=== PATIENT | male | born 1955 | race Caucasian/White ===

== ENCOUNTER 2020-09-28 12:48 | Inpatient (IN) | payer MEDICARE, MEDICAID ==
[2020-09-28 13:45] LABS: HEMATOCRIT 33.8 % (37.9-51.0); MEAN CORPUSCULAR HGB CONC 32.5 g/dL (32.0-36.0); MEAN CORPUSCULAR VOLUME 99 fl (80-97); PLATELET COUNT 285 10^3/uL (150-450); RED BLOOD COUNT 3.42 10^6/uL (4.35-5.55); RED CELL DISTRIBUTION WIDTH 14.8 % (11.5-14.0); WHITE BLOOD COUNT 13.3 10^3/uL (4.0-10.5)
[2020-09-28 13:51] LABS: ALBUMIN 4.1 g/dL (3.5-5.0); ALKALINE PHOSPHATASE 131 U/L (38-126); ANION GAP 10 (5-19); ASPARTATE AMINO TRANSFERASE 42 U/L (17-59); BILIRUBIN,DIRECT 0.4 mg/dL (0.0-0.4); BILIRUBIN,TOTAL 0.7 mg/dL (0.2-1.3); BLOOD UREA NITROGEN 30 mg/dL (7-20); CALCIUM 9.6 mg/dL (8.4-10.2); CARBON DIOXIDE 24 mmol/L (22-30); CHLORIDE 109 mmol/L (98-107); CREATINE KINASE 247 U/L (55-170); GLUCOSE 99 mg/dL (75-110); POTASSIUM 4.2 mmol/L (3.6-5.0); TOTAL PROTEIN 6.7 g/dL (6.3-8.2)
[2020-09-28 14:01] LABS: CREATINE KINASE MB 5.99 ng/mL (<4.55)
[2020-09-28 14:04] LABS: ABSOLUTE LYMPHOCYTES# (MANUAL) 0.4 10^3/uL (0.5-4.7); ABSOLUTE MONOCYTES # (MANUAL) 1.1 10^3/uL (0.1-1.4); BAND NEUTROPHILS % (MANUAL) 1 % (3-5); BASOPHILS % (MANUAL) 0 % (0-2); EOSINOPHILS % (MANUAL) 7 % (0-6); LYMPHOCYTES % (MANUAL) 2 % (13-45); MONOCYTES % (MANUAL) 8 % (3-13); SEGMENTED NEUTROPHILS % (MAN) 81 % (42-78); TOTAL CELLS COUNTED 100
[2020-09-28 14:05] LABS: PLATELET COMMENT ADEQUATE; RBC MORPHOLOGY COMMENT NORMO-CYTIC/CHROMIC; TROPONIN I 0.069 ng/mL
--- NOTE | 2020-09-28 14:21 | RADIOLOGY REPORT (SQ) ---
EXAM DESCRIPTION: CHEST SINGLE VIEW IMAGES COMPLETED DATE/TIME: 09/28/2020 2:10 pm REASON FOR STUDY: shortness of breath COMPARISON: None. EXAM PARAMETERS: NUMBER OF VIEWS: One view. TECHNIQUE: Single frontal radiographic view of the chest acquired. RADIATION DOSE: NA LIMITATIONS: None. FINDINGS: LUNGS AND PLEURA: Small pleural effusions, right greater than left. No infiltrate. MEDIASTINUM AND HILAR STRUCTURES: No masses. Contour normal. HEART AND VASCULAR STRUCTURES: Heart size upper limits normal. Normal vasculature. BONES: No acute findings. HARDWARE: None in the chest. OTHER: No other significant finding. IMPRESSION: Small pleural effusions. TECHNICAL DOCUMENTATION: JOB ID: [id number] 2010 [employer]- All Rights Reserved Reading location - IP/workstation name: [email or web address]
--- NOTE | 2020-09-28 14:22 | EKG REPORT ---
SEVERITY:- ABNORMAL ECG - SINUS TACHYCARDIA CONSIDER LEFT VENTRICULAR HYPERTROPHY BORDERLINE PROLONGED QT INTERVAL : Confirmed by: Marlene Mckenna MD 28-Sep-2020 14:21:12
--- NOTE | 2020-09-28 15:11 | ER Document Report ---
ED General - General Chief Complaint: Shortness Of Breath Stated Complaint: SHORTNESS OF BREATH Time Seen by Provider: 09/28/20 13:02 Mode of Arrival: Medic Information source: Patient - HPI Notes: [facility] with [facility]ness of breath. He states he is not on oxygen at the [facility] just breathing treatments. He states he still smokes. Patient states he has had several days of increasing shortness of breath. He does have a history of congestive heart failure and COPD. No fever sweats or chills. No known Covid exposure. He denies any pain. He states now that oxygen has been placed on him he does feel better. - Related Data Allergies/Adverse Reactions: Penicillins Allergy (Verified 09/28/20 13:13) Past Medical History - General Information source: Patient - Social History Smoking Status: Current Every Day Smoker Frequency of alcohol use: None Drug Abuse: None Family History: Reviewed & Not Pertinent Patient has homicidal ideation: No - Past Medical History Cardiac Medical History: Reports: Hx Congestive Heart Failure Pulmonary Medical History: Reports: Hx COPD Review of Systems - Review of Systems Constitutional: denies: Chills, Fever Cardiovascular: denies: Chest pain, Palpitations Respiratory: Cough, Short of breath -: Yes All other systems reviewed and negative Physical Exam - Vital signs Vitals: Temp 97.9 F 09/28/20 12:49 Interpretation: Tachycardic - General General appearance: Appears well, Alert - HEENT Head: Normocephalic, Atraumatic Eyes: Normal Pupils: PERRL - Respiratory Respiratory status: Respiratory distress - mild Chest status: Nontender Breath sounds: Decreased air movement Chest palpation: Normal - Cardiovascular Rhythm: Tachycardia Heart sounds: Normal auscultation Murmur: No - Abdominal Inspection: Normal Distension: No distension Bowel sounds: Normal Tenderness: Nontender Organomegaly: No organomegaly - Back Back: Normal, Nontender - Extremities General upper extremity: Normal inspection, Nontender, Normal color, Normal ROM, Normal temperature General lower extremity: Normal inspection, Nontender, Edema - 2+ bilaterally, Normal color, Normal ROM, Normal temperature, Normal weight bearing. No: Juli's sign - Neurological Neuro grossly intact: Yes Cognition: Normal Orientation: AAOx4 [place] Coma Scale Eye Opening: Spontaneous Independence Coma Scale Verbal: Oriented Rubi Coma Scale Motor: Obeys Commands Rubi Coma Scale Total: 15 Speech: Normal Motor strength normal: LUE, RUE, LLE, RLE Sensory: Normal - Psychological Associated symptoms: Normal affect, Normal mood - Skin Skin Temperature: Warm Skin Moisture: Dry Skin Color: Normal Course - Re-evaluation Re-evalutation: 09/28/20 17:48 Patient presents from nursing with significant shortness of breath. He has hypoxic on room air. With supplemental oxygen he states he feels significantly better and on 3 L of oxygen his O2 saturation is approximate 92%. Patient has a history of COPD and is possible he is having exacerbation. He also may be having an early component of congestive heart failure. Either way patient is definitely hypoxic and is going require admission. I did call and discussed the case with the [facility] and they state that they cannot take the patient back because they do not have the ability to supply him with oxygen. Therefore patient is going require admission. 09/28/20 17:51 The patient was evaluated during a global COVID-19 pandemic and that diagnosis was suspected/considered upon their initial presentation. Their evaluation, treatment and testing was consistent with current guidelines for patients who present with complaints or symptoms and may be related to COVID-19. - Vital Signs Vital signs: Temp Pulse Resp BP Pulse Ox 97.9 F 19 128/97 H 95 09/28/20 12:49 09/28/20 17:01 09/28/20 17:00 09/28/20 17:01 - Laboratory Results Result Diagrams: 09/28/20 12:55 09/28/20 12:55 Laboratory Results Interpreted: 09/28/20 09/28/20 09/28/20 12:55 12:55 12:55 WBC 13.3 H RBC 3.42 L Hgb 11.0 L Hct 33.8 L MCV 99 H RDW 14.8 H Seg Neuts % (Manual) 81 H Band Neutrophils % 1 L Lymphocytes % (Manual) 2 L Eosinophils % (Manual) 7 H Abs Neuts (Manual) 10.9 H Abs Lymphs (Manual) 0.4 L Absolute Eos (Manual) 0.9 H Chloride 109 H BUN 30 H Creatinine 1.69 H Est GFR ( Amer) 50 L Est GFR (MDRD) Non-Af 41 L Alkaline Phosphatase 131 H Creatine Kinase 247 H CK-MB (CK-2) 5.99 H NT-Pro-B Natriuret Pep 9120 H Ur Leukocyte Esterase 09/28/20 16:38 WBC RBC Hgb Hct MCV RDW Seg Neuts % (Manual) Band Neutrophils % Lymphocytes % (Manual) Eosinophils % (Manual) Abs Neuts (Manual) Abs Lymphs (Manual) Absolute Eos (Manual) Chloride BUN Creatinine Est GFR ( Amer) Est GFR (MDRD) Non-Af Alkaline Phosphatase Creatine Kinase CK-MB (CK-2) NT-Pro-B Natriuret Pep Ur Leukocyte Esterase TRACE H Critical Laboratory Results Reviewed: No Critical Results - Radiology Results Critical Radiology Results Reviewed: No Critical Results - EKG Interpretation by Pa EKG shows normal: Sinus rhythm Rate: Tachycardia - 112 Rhythm: NSR [place]/QRS: No: Right axis deviation, Left axis deviation Voltage: Consistent with LVH Discharge - Discharge Clinical Impression: Hypoxia, Person under investigation for COVID-19 Dyspnea Qualifiers: Dyspnea type: other forms of dyspnea Qualified Code(s): R06.09 - Other forms of dyspnea Condition: Stable Disposition: ADMITTED INPATIENT Admitting Provider: Jasvir (Hospitalist) Unit Admitted: Telemetry
--- NOTE | 2020-09-28 15:30 | RADIOLOGY REPORT (SQ) ---
EXAM DESCRIPTION: CT CHEST WITHOUT IMAGES COMPLETED DATE/TIME: 09/28/2020 3:12 pm REASON FOR STUDY: sob COMPARISON: None. TECHNIQUE: CT scan performed of the chest without intravenous contrast. Images reviewed with lung, soft tissue and bone windows. Reconstructed coronal and sagittal MPR images reviewed. All images st ored on PACS. All CT scanners at this facility use dose modulation, iterative reconstruction, and/or weight based d osing when appropriate to reduce radiation dose to as low as reasonably achievable (ALARA). [facility]: Dose Right [facility]: CareDose [facility]: Dose Right [facility]: Teradose 4D [facility]: [employer] RADIATION DOSE: CT Rad equipment meets quality standard of care and radiation dose reduction techniq ues were employed. CTDIvol: 5.4 mGy. DLP: 211 mGy-cm. mGy. LIMITATIONS: No technical limitations. FINDINGS: LUNGS AND PLEURA: Densely calcified 8 mm granuloma in the right upper lobe anteriorly. Ce ntrilobular emphysematous changes. Significant right pleural effusion with smaller left pleural effu annalee. No acute infiltrate. No suspicious mass. Mild atelectatic changes in the lower lobes. HILAR AND MEDIASTINAL STRUCTURES: There are calcified precarinal lymph nodes. A couple small calcifi ed left hilar nodes. HEART AND VASCULAR STRUCTURES: No aneurysm. No pericardial effusion. Coronary artery calcifications . UPPER ABDOMEN: Atherosclerosis. Small lateral aneurysm of the abdominal aorta as seen on image 59. Aneurysm dilatation of the mid abdominal aorta. The aorta measures 44 mm on the last image. Left re nal atrophy. THYROID AND OTHER SOFT TISSUES: No masses. No adenopathy. BONES: No significant finding. HARDWARE: None in the chest. OTHER: No other significant findings. IMPRESSION: 1. Centrilobular emphysema. 2. Bilateral pleural effusions with associated atelectatic changes as described. 3. Calcified granuloma with calcified mediastinal and hilar lymph nodes. 4. Atherosclerosis, abdominal aortic aneurysms, and associated changes in the abdomen as described. TECHNICAL DOCUMENTATION: JOB ID: [id number] Quality ID # [id number]: Final reports with documentation of one or more dose reduction techniques (e.g., Au tomated exposure control, adjustment of the mA and/or kV according to patient size, use of iterative reconstruction technique) 2010 [employer]- All Rights Reserved Reading location - IP/workstation name: [email or web address]
[2020-09-28] MEDS ORDERED: FUROSEMIDE INJ/PF 40 MG/4 ML SDV IV ONE (15:38)
[2020-09-28 16:58] LABS: APPEARANCE,URINE CLEAR; BILIRUBIN,URINE NEGATIVE (NEGATIVE); COLOR,URINE YELLOW; GLUCOSE, URINE NEGATIVE (NEGATIVE); KETONES,URINE NEGATIVE (NEGATIVE); LEUKOCYTE ESTERASE,URINE TRACE (NEGATIVE); NITRITE,URINE NEGATIVE (NEGATIVE); PROTEIN,URINE NEGATIVE (NEGATIVE); URINE SPECIFIC GRAVITY 1.013; UROBILINOGEN,URINE NEGATIVE mg/dL (<2.0)
--- NOTE | 2020-09-28 18:04 | PDOC H&P ---
History of Present Illness History of Present Illness: SAJAN BANDA is a 65 year old male who lives at the [facility] he has a history of COPD and hyperlipidemia who presents with shortness of breath. He said he has had trouble with his breathing for about a week, and today apparently when he was complaining of shortness of breath he said it did not respond to nebulizer treatments. Pulse oximetry was checked and it was 85%. EMS checked it it was 88 percent. EMS put him on 4 L and brought him to the hospital. He got another nebulizer treatment and said his breathing was feeling better. He was hypoxic here and it was thought that he would probably need oxygen. They were unable to obtain it for him at the half-way facility until tomorrow. Scan of his chest showed a small right pleural effusion with a possible small amount of pulmonary edema. He had a little bit of pitting edema at the ankles on examination. BNP was elevated. He has no prior history of any heart disease or CHF. Past Medical History Cardiac Medical History: Reports: Hyperlipidema Pulmonary Medical History: Reports: Chronic Obstructive Pulmonary Disease (COPD) Social History Smoking Status: Current Every Day Smoker Family History Family History: Reviewed & Not Pertinent, Other - Unknown Parental Family History Reviewed: No - unknown Children Family History Reviewed: Unknown Sibling(s) Family History Reviewed.: Unknown Medication/Allergy Allergies/Adverse Reactions: Penicillins Allergy (Verified 09/28/20 13:13) Review of Systems All systems: reviewed and no additional remarkable complaints except as stated - All systems were reviewed and were negative except as noted in the HPI Physical Exam Vital Signs: Temp Pulse Resp BP Pulse Ox 97.9 F 19 128/97 H 95 09/28/20 12:49 09/28/20 17:01 09/28/20 17:00 09/28/20 17:01 Intake & Output 09/27/20 09/28/20 09/29/20 06:59 06:59 06:59 Weight 61.7 kg General appearance: PRESENT: no acute distress, cooperative, disheveled Head exam: PRESENT: atraumatic, normocephalic Eye exam: PRESENT: EOMI, PERRLA. ABSENT: conjunctival injection, nystagmus, scleral icterus Ear exam: PRESENT: normal external ear exam Mouth exam: PRESENT: dry mucosa, neck supple Teeth exam: PRESENT: poor dentation Neck exam: PRESENT: full ROM. ABSENT: carotid bruit, JVD, lymphadenopathy, meningismus, tenderness, thyromegaly Respiratory exam: PRESENT: clear to auscultation jessie, symmetrical, unlabored. ABSENT: accessory muscle use, chest wall tenderness, crackles, prolonged expiratory phas, rhonchi, tachypnea, wheezes Cardiovascular exam: PRESENT: RRR, +S1, +S2 Pulses: PRESENT: normal carotid pulses Vascular exam: PRESENT: normal capillary refill GI/Abdominal exam: PRESENT: normal bowel sounds, soft. ABSENT: distended, guarding, rebound, tenderness Extremities exam: PRESENT: pedal edema. ABSENT: clubbing Musculoskeletal exam: PRESENT: deformity - He has a pretty impressive kyphosis Neurological exam: PRESENT: alert, awake, oriented to person, oriented to place, oriented to situation, CN II-XII grossly intact. ABSENT: motor sensory deficit Psychiatric exam: PRESENT: appropriate affect, normal mood Skin exam: PRESENT: dry, warm, other - He has numerous excoriated areas on all of his extremities and his back where he has been itching, he has some dry flaky and slightly erythematous areas covering large parts of his skin in the same areas Results Laboratory Results: 09/28/20 12:55 09/28/20 12:55 09/28/20 09/28/20 09/28/20 12:55 12:55 16:38 WBC 13.3 H RBC 3.42 L Hgb 11.0 L Hct 33.8 L MCV 99 H MCH 32.0 MCHC 32.5 RDW 14.8 H Plt Count 285 Seg Neutrophils % Not Reportable Sodium 143.4 Potassium 4.2 Chloride 109 H Carbon Dioxide 24 Anion Gap 10 BUN 30 H Creatinine 1.69 H Est GFR ( Amer) 50 L Glucose 99 Calcium 9.6 Total Bilirubin 0.7 AST 42 Alkaline Phosphatase 131 H Total Protein 6.7 Albumin 4.1 Urine Color YELLOW Urine Appearance CLEAR Urine pH 5.0 Ur Specific [place] 1.013 Urine Protein NEGATIVE Urine Glucose (UA) NEGATIVE Urine Ketones NEGATIVE Urine Blood NEGATIVE Urine Nitrite NEGATIVE Ur Leukocyte Esterase TRACE H Urine WBC (Auto) 3 Urine RBC (Auto) 8 09/28/20 09/28/20 12:55 12:55 Creatine Kinase 247 H CK-MB (CK-2) 5.99 H Troponin I 0.069 NT-Pro-B Natriuret Pep 9120 H Impressions: Chest X-Ray 09/28/20 13:16 IMPRESSION: Small pleural effusions. Chest CT 09/28/20 14:26 IMPRESSION: 1. Centrilobular emphysema. 2. Bilateral pleural effusions with associated atelectatic changes as described. 3. Calcified granuloma with calcified mediastinal and hilar lymph nodes. 4. Atherosclerosis, abdominal aortic aneurysms, and associated changes in the abdomen as described. Assessment and Plan - Diagnosis (1) Hypoxia Is this a current diagnosis for this admission?: Yes (2) Dyspnea Qualifiers: Dyspnea type: shortness of breath Qualified Code(s): R06.02 - Shortness of breath; R06.00 - Dyspnea, unspecified; R06.01 - Orthopnea Is this a current diagnosis for this admission?: Yes (3) Eczema Qualifiers: Eczema type: other Qualified Code(s): L30.8 - Other specified dermatitis Is this a current diagnosis for this admission?: Yes (4) Emphysema of lung Qualifiers: Emphysema type: centrilobular Qualified Code(s): J43.2 - Centrilobular emphysema Is this a current diagnosis for this admission?: Yes - Plan Summary Summary: He has emphysema on his chest CT. BNP was elevated. He had a small right pleural effusion and a little bit of ankle edema. He was given 1 dose of Lasix in the ER. I cannot say for certain that he has heart failure, but I suspect he may have pulmonary hypertension, which could cause this constellation of findings. We will get an echocardiogram. We will continue 2 L of oxygen we will try to arrange for him to have this at the half-way facility. Once his COPD medications are reconciled we will continue those. We will continue his Lipitor. Once we get the echocardiogram results we can determine what needs to be due next and he can likely be discharged back to the half-way facility. - Time Time Spent with patient: 35 or more minutes Anticipated Discharge Disposition: Shelter Facility Anticipated Discharge Timeframe: within 48 hours - Inpatient Certification Based on my medical assessment, after consideration of the patient's comorbidities, presenting symptoms, or acuity I expect that the services needed warrant INPATIENT care.: Yes I certify that my determination is in accordance with my understanding of Medicare's requirements for reasonable and necessary INPATIENT services [42 CFR 412.3e].: Yes Medical Necessity: Significant Comorbidiites Make Outpatient Treatment Too Risky, Need Close Monitoring Due to Risk of Patient Decompensation, Need For Continuous Telemetry Monitoring, Need for Nebulizer Therapy and Monitoring of Response, Risk of Complication if Not Cared For in Hospital
[2020-09-28] MEDS: DIPHENHYDRAMINE HCL 25 MG CAPSULE PO PRN ×2 (18:17→22:21)
[2020-09-28] MEDS: IPRATROPIUM/ALBUTEROL 0.5-2.5 MG/3 ML AMPUL NEB PRN ×2 (18:23→22:23)
[2020-09-28] MEDS: HEPARIN SOD (PORCINE) 5,000 UNIT/ML 1 ML VIAL SUBCUT SCH (22:20)
[2020-09-29] MEDS: IPRATROPIUM/ALBUTEROL 0.5-2.5 MG/3 ML AMPUL NEB PRN ×2 (06:49→21:05)
[2020-09-29 07:37] LABS: HEMATOCRIT 33.4 % (37.9-51.0); HEMOGLOBIN 11.1 g/dL (13.5-17.0); MEAN CORPUSCULAR HGB CONC 33.1 g/dL (32.0-36.0); MEAN CORPUSCULAR VOLUME 97 fl (80-97); PLATELET COUNT 271 10^3/uL (150-450); RED BLOOD COUNT 3.46 10^6/uL (4.35-5.55); RED CELL DISTRIBUTION WIDTH 14.7 % (11.5-14.0); WHITE BLOOD COUNT 11.9 10^3/uL (4.0-10.5)
[2020-09-29] MEDS: HEPARIN SOD (PORCINE) 5,000 UNIT/ML 1 ML VIAL SUBCUT SCH ×3 (07:44→21:44)
[2020-09-29 08:05] LABS: ANION GAP 12 (5-19); BLOOD UREA NITROGEN 32 mg/dL (7-20); CALCIUM 9.4 mg/dL (8.4-10.2); CARBON DIOXIDE 22 mmol/L (22-30); CHLORIDE 109 mmol/L (98-107); GLUCOSE 78 mg/dL (75-110); POTASSIUM 3.9 mmol/L (3.6-5.0)
--- NOTE | 2020-09-29 11:15 | PDOC PROGRESS REPORT ---
Subjective Date:: 09/29/20 Subjective:: 65 year old male who lives at the [facility] he has a history of COPD and hyperlipidemia who presents with shortness of breath. He said he has had trouble with his breathing for about a week, and today apparently when he was complaining of shortness of breath he said it did not respond to nebulizer treatments. Pulse oximetry was checked and it was 85%. EMS checked it it was 88 percent. EMS put him on 4 L and brought him to the hospital. He got another nebulizer treatment and said his breathing was feeling better. He was hypoxic here and it was thought that he would probably need oxygen. They were unable to obtain it for him at the [facility] facility until tomorrow. Scan of his chest showed a small right pleural effusion with a possible small amount of pulmonary edema. He had a little bit of pitting edema at the ankles on examination. BNP was elevated. He has no prior history of any heart disease or CHF. 09/29/[id number]-dehi-old male with history of COPD, hyperlipidemia admitted with shortness of breath. Pulse ox by EMS report is 88%. He was placed on 4 L of oxygen brought to the hospital for further evaluation. In the ER BNP is christiane vated. BNP is 9120 repeat BNP is 12,000 today. Patient is not in shortness of breath at the time of my examination on oxygen supplementation. Reason For Visit: DYSPNEA,HYPOXIA Physical Exam Vital Signs: Temp Pulse Resp BP Pulse Ox 98.0 F 96 18 147/83 H 93 09/29/20 08:35 09/29/20 08:08 09/29/20 08:08 09/29/20 08:08 09/29/20 08:08 Intake & Output 09/28/20 09/29/20 09/30/20 06:59 06:59 06:59 Intake Total 725 Output Total 950 Balance -225 Weight 60.2 kg General appearance: PRESENT: no acute distress, cooperative Head exam: PRESENT: atraumatic Eye exam: PRESENT: PERRLA Mouth exam: PRESENT: moist, tongue midline Teeth exam: PRESENT: poor dentation Neck exam: ABSENT: carotid bruit, JVD, lymphadenopathy, thyromegaly Respiratory exam: PRESENT: crackles, decreased breath sounds Cardiovascular exam: PRESENT: RRR. ABSENT: diastolic murmur, rubs, systolic murmur GI/Abdominal exam: PRESENT: normal bowel sounds, soft. ABSENT: distended, guarding, mass, organolmegaly, rebound, tenderness Rectal exam: PRESENT: deferred Extremities exam: PRESENT: full ROM. ABSENT: calf tenderness, clubbing, pedal edema Neurological exam: PRESENT: alert, awake, oriented to person, oriented to place, oriented to time, oriented to situation, CN II-XII grossly intact. ABSENT: motor sensory deficit Psychiatric exam: PRESENT: appropriate affect, normal mood. ABSENT: homicidal ideation, suicidal ideation Results Laboratory Results: 09/29/20 06:12 09/29/20 06:12 09/28/20 09/28/20 09/28/20 12:55 12:55 16:38 WBC 13.3 H RBC 3.42 L Hgb 11.0 L Hct 33.8 L MCV 99 H MCH 32.0 MCHC 32.5 RDW 14.8 H Plt Count 285 Seg Neutrophils % Not Reportable Sodium 143.4 Potassium 4.2 Chloride 109 H Carbon Dioxide 24 Anion Gap 10 BUN 30 H Creatinine 1.69 H Est GFR ( Amer) 50 L Glucose 99 Calcium 9.6 Total Bilirubin 0.7 AST 42 Alkaline Phosphatase 131 H Total Protein 6.7 Albumin 4.1 Urine Color YELLOW Urine Appearance CLEAR Urine pH 5.0 Ur Specific [place] 1.013 Urine Protein NEGATIVE Urine Glucose (UA) NEGATIVE Urine Ketones NEGATIVE Urine Blood NEGATIVE Urine Nitrite NEGATIVE Ur Leukocyte Esterase TRACE H Urine WBC (Auto) 3 Urine RBC (Auto) 8 09/29/20 09/29/20 06:12 06:12 WBC 11.9 H RBC 3.46 L Hgb 11.1 L Hct 33.4 L MCV 97 MCH 32.0 MCHC 33.1 RDW 14.7 H Plt Count 271 Seg Neutrophils % Sodium 142.6 Potassium 3.9 Chloride 109 H Carbon Dioxide 22 Anion Gap 12 BUN 32 H Creatinine 1.98 H Est GFR ( Amer) 41 L Glucose 78 Calcium 9.4 Total Bilirubin AST Alkaline Phosphatase Total Protein Albumin Urine Color Urine Appearance Urine pH Ur Specific [place] Urine Protein Urine Glucose (UA) Urine Ketones Urine Blood Urine Nitrite Ur Leukocyte Esterase Urine WBC (Auto) Urine RBC (Auto) 09/28/20 09/28/20 09/29/20 12:55 12:55 06:12 Creatine Kinase 247 H CK-MB (CK-2) 5.99 H Troponin I 0.069 NT-Pro-B Natriuret Pep 9120 H 56333 H Impressions: Chest X-Ray 09/28/20 13:16 IMPRESSION: Small pleural effusions. Chest CT 09/28/20 14:26 IMPRESSION: 1. Centrilobular emphysema. 2. Bilateral pleural effusions with associated atelectatic changes as described. 3. Calcified granuloma with calcified mediastinal and hilar lymph nodes. 4. Atherosclerosis, abdominal aortic aneurysms, and associated changes in the abdomen as described. Assessment and Plan - Diagnosis (1) Dyspnea Qualifiers: Dyspnea type: shortness of breath Qualified Code(s): R06.02 - Shortness of breath; R06.00 - Dyspnea, unspecified; R06.01 - Orthopnea Is this a current diagnosis for this admission?: Yes Plan: 09/29/[id number]-anhq-old male with history of COPD admitted with shortness of breath. Chest x-ray suggestive of small right pleural effusion and questionable pulmonary edema. Pulse ox is 92% 4 L this morning. Comfortably in the bed communicating well. BNP is 12,000. Elevated BNP may be secondary to CKD. Echocardiogram report is pending at this time. (2) Eczema Qualifiers: Eczema type: other Qualified Code(s): L30.8 - Other specified dermatitis Is this a current diagnosis for this admission?: No (3) Emphysema of lung Qualifiers: Emphysema type: centrilobular Qualified Code(s): J43.2 - Centrilobular emphysema Is this a current diagnosis for this admission?: No (4) Person under investigation for COVID-19 Is this a current diagnosis for this admission?: Yes Plan: 09/29/2020-Covid test is negative. (5) CKD (chronic kidney disease) Is this a current diagnosis for this admission?: No Plan: 09/29/2020-patient has history of chronic kidney disease. On admission serum creatinine is 1.6, creatinine this morning is 1.98. Patient has a stage III kidney disease. - Plan Summary Summary: He has emphysema on his chest CT. BNP was elevated. He had a small right pleural effusion and a little bit of ankle edema. He was given 1 dose of Lasix in the ER. I cannot say for certain that he has heart failure, but I suspect he may have pulmonary hypertension, which could cause this constellation of findings. We will get an echocardiogram. We will continue 2 L of oxygen we will try to arrange for him to have this at the [facility] facility. Once his COPD medications are reconciled we will continue those. We will continue his Lipitor. Once we get the echocardiogram results we can determine what needs to be due next and he can likely be discharged back to the [facility] facility. - Time Anticipated Discharge Disposition: Home, Self Care Anticipated Discharge Timeframe: within 72 hours
[2020-09-29] MEDS ORDERED: (PENDING PHARMACY ID) (Hydralazine Hcl [Hydralazine Hcl] 100 MG Tablet) PO SCH (14:00)
[2020-09-29] MEDS: HYDRALAZINE HCL 50 MG TABLET PO SCH ×2 (14:48→21:44)
--- NOTE | 2020-09-29 16:29 | XCELERA REPORT ---
[address] [address] Transthoracic Echocardiogram Report Name: SAAJN BANDA Age: 65 yrs Gender: Male : 1955 Patient Status: Inpatient Patient Location: [address] [place] [address] Study Date: 09/29/2020 08:36 AM History: Dyspnea Height: 65 in Weight: 136 lb BSA: 1.7 m2 Procedure: A complete two-dimensional transthoracic echocardiogram was performed (2D, M-mode, spectral and color flow Doppler). The study was technically difficult with many images being suboptimal in quality. Reason For Study: dyspnea, elevated bnp Previous Evaluation: No previous studies were available. History: Shortness of breath. CHF. Ordering Physician: SYLVESTER SHAH Performed By: Ramona Panda Interpretation Summary Left ventricular systolic function is low normal. The Ejection Fraction estimate is 50-55% The right ventricle is normal in size and function. There is a mild amount of mitral regurgitation There is no aortic valve stenosis There is a trace amount of tricuspid regurgitation There is no pericardial effusion. MMode/2D Measurements & Calculations RVDd: 2.0 cm LVIDd: 4.5 cm FS: 20.2 % Ao root diam: 2.2 cm IVSd: 0.93 cm LVIDs: 3.6 cm EDV(Teich): Ao root area: LVPWd: 1.1 cm 92.0 ml 3.7 cm2 ESV(Teich): 53.8 ml EF(Teich): 41.5 % EDV(MOD-sp4): SV(MOD-sp4): 81.7 ml 43.8 ml ESV(MOD-sp4): 37.8 ml EF(MOD-sp4): 53.7 % Doppler Measurements & Calculations MV E max kaci: MV dec slope: Ao V2 max: LV V1 max P.4 cm/sec 140.8 cm/sec 3.6 mmHg MV A max kaci: 590.8 cm/sec2 Ao max PG: LV V1 max: 76.2 cm/sec MV dec time: 0.16 sec7.9 mmHg 95.1 cm/sec MV E/A: 1.3 PA V2 max: 79.2 cm/sec PA max P.5 mmHg Left Ventricle The left ventricle is grossly normal size. There is moderate concentric left ventricular hypertrophy. Left ventricular systolic function is low normal. The Ejection Fraction estimate is 50-55%. Doppler measurements suggest pseudonormalized left ventricular relaxation, which is associated with grade II/IV or mild to moderate diastolic dysfunction. Regional wall motion abnormalities cannot be excluded due to limited visualization. Right Ventricle The right ventricle is normal in size and function. Atria The right atrium is normal. The left atrial size is normal. The interatrial septum is intact with no evidence for an atrial septal defect. There is no Doppler evidence for an interatrial shunt. Mitral Valve There is mild to moderate mitral annular calcification. There is no mitral valve stenosis. There is a mild amount of mitral regurgitation. Aortic Valve The aortic valve is mildly calcified. The aortic valve is sclerotic and shows some degree of functional abnormality. The aortic valve opens well. The aortic valve is not well visualized secondary to technical limitations. There is no aortic valve stenosis. No aortic regurgitation is present. Tricuspid Valve The tricuspid valve is not well visualized, but is grossly normal. There is no tricuspid stenosis. There is a trace amount of tricuspid regurgitation. Tricuspid regurgitation jet envelope not well defined to measure RV systolic pressure accurately. Pulmonic Valve The pulmonic valve is not well visualized. There is no pulmonic valvular stenosis. There is a trace or physiologic amount of pulmonic regurgitation. Great Vessels The aortic root is normal size. The inferior vena cava appeared normal and decreased > 50% with respiration (RAP 5-10 mmHg). Effusions There is no pericardial effusion. : SYLVESTER SHAH Anil
[2020-09-29] MEDS: TRIAMCINOLONE ACETONIDE 0.1% CREAM 15 GM TOP SCH (17:33)
[2020-09-29] MEDS: FLUTICASONE NASAL SPRAY 50 MCG/SPRY 120 SPRAY/16 GM NASL SCH (21:42)
[2020-09-29] MEDS: ATORVASTATIN CALCIUM 40 MG TABLET PO SCH (21:44)
[2020-09-29] MEDS ORDERED: FORMOTEROL FUMARATE IH SCH (22:00)
[2020-09-29] MEDS ORDERED: BUDESONIDE IH SCH (22:00)
[2020-09-30] MEDS: DIPHENHYDRAMINE HCL 25 MG CAPSULE PO PRN (03:12)
[2020-09-30] MEDS: HEPARIN SOD (PORCINE) 5,000 UNIT/ML 1 ML VIAL SUBCUT SCH ×3 (06:23→21:45)
[2020-09-30] MEDS: HYDRALAZINE HCL 50 MG TABLET PO SCH ×3 (06:23→21:45)
[2020-09-30] MEDS ORDERED: (PENDING PHARMACY ID) (Tiotropium Bromide [Spiriva Handihaler 5 Cap/Kit (18 Mcg/Cap)] 5 CA IH SCH (10:00)
[2020-09-30] MEDS: FLUTICASONE/VILANTEROL 100-25 MCG/DOSE IH SCH (10:00)
[2020-09-30] MEDS: UMECLIDINIUM BROMIDE 62.5 MCG/DOSE IH SCH (10:01)
[2020-09-30] MEDS: ASPIRIN 81 MG TABLET, ENT COATED PO SCH (10:01)
[2020-09-30] MEDS: FLUTICASONE NASAL SPRAY 50 MCG/SPRY 120 SPRAY/16 GM NASL SCH ×2 (10:01→21:48)
[2020-09-30] MEDS: AMLODIPINE BESYLATE 10 MG TABLET PO SCH (10:01)
[2020-09-30] MEDS: TRIAMCINOLONE ACETONIDE 0.1% CREAM 15 GM TOP SCH ×2 (10:04→18:12)
--- NOTE | 2020-09-30 11:59 | PDOC PROGRESS REPORT ---
Subjective Date:: 09/30/20 Subjective:: 65 year old male who lives at the [facility] he has a history of COPD and hyperlipidemia who presents with shortness of breath. He said he has had trouble with his breathing for about a week, and today apparently when he was complaining of shortness of breath he said it did not respond to nebulizer treatments. Pulse oximetry was checked and it was 85%. EMS checked it it was 88 percent. EMS put him on 4 L and brought him to the hospital. He got another nebulizer treatment and said his breathing was feeling better. He was hypoxic here and it was thought that he would probably need oxygen. They were unable to obtain it for him at the [facility] facility until tomorrow. Scan of his chest showed a small right pleural effusion with a possible small amount of pulmonary edema. He had a little bit of pitting edema at the ankles on examination. BNP was elevated. He has no prior history of any heart disease or CHF. 09/29/[id number]-czoz-old male with history of COPD, hyperlipidemia admitted with shortness of breath. Pulse ox by EMS report is 88%. He was placed on 4 L of oxygen brought to the hospital for further evaluation. In the ER BNP is christiane vated. BNP is 9120 repeat BNP is 12,000 today. Patient is not in shortness of breath at the time of my examination on oxygen supplementation. 09/30/2086-34-ytov-old male with history of COPD on 4 L of oxygen at the assisted living admitted for shortness of breath. Early this morning he went into respiratory distress was placed on a nonrebreather. Plan to do the CT chest without contrast today. To continue to provide oxygen supplementation by nonrebreather. Reason For Visit: DYSPNEA,HYPOXIA Physical Exam Vital Signs: Temp Pulse Resp BP Pulse Ox 97.8 F 94 18 170/74 H 100 09/30/20 10:00 09/30/20 07:00 09/30/20 05:42 09/30/20 05:42 09/30/20 05:42 Intake & Output 09/29/20 09/30/20 10/01/20 06:59 06:59 06:59 Intake Total 725 775 Output Total 950 500 Balance -225 275 Weight 60.2 kg 61 kg General appearance: PRESENT: no acute distress, cooperative, thin Head exam: PRESENT: atraumatic Eye exam: PRESENT: PERRLA Ear exam: PRESENT: normal external ear exam Mouth exam: PRESENT: neck supple Teeth exam: PRESENT: poor dentation Neck exam: ABSENT: carotid bruit, JVD, lymphadenopathy, thyromegaly Respiratory exam: PRESENT: decreased breath sounds, other - Bilateral air entry is severely decreased. GI/Abdominal exam: PRESENT: normal bowel sounds, soft. ABSENT: distended, guarding, mass, organolmegaly, rebound, tenderness Rectal exam: PRESENT: deferred Extremities exam: PRESENT: full ROM. ABSENT: calf tenderness, clubbing, pedal edema Neurological exam: PRESENT: alert, awake, oriented to person, oriented to place, oriented to time, oriented to situation, CN II-XII grossly intact. ABSENT: motor sensory deficit Psychiatric exam: PRESENT: appropriate affect, normal mood. ABSENT: homicidal ideation, suicidal ideation Results Laboratory Results: 09/29/20 06:12 09/29/20 06:12 09/28/20 09/28/20 09/29/20 12:55 12:55 06:12 Creatine Kinase 247 H CK-MB (CK-2) 5.99 H Troponin I 0.069 NT-Pro-B Natriuret Pep 9120 H 09825 H Impressions: Chest X-Ray 09/28/20 13:16 IMPRESSION: Small pleural effusions. Chest CT 09/28/20 14:26 IMPRESSION: 1. Centrilobular emphysema. 2. Bilateral pleural effusions with associated atelectatic changes as described. 3. Calcified granuloma with calcified mediastinal and hilar lymph nodes. 4. Atherosclerosis, abdominal aortic aneurysms, and associated changes in the abdomen as described. Assessment and Plan - Diagnosis (1) Dyspnea Qualifiers: Dyspnea type: shortness of breath Qualified Code(s): R06.02 - Shortness of breath; R06.00 - Dyspnea, unspecified; R06.01 - Orthopnea Is this a current diagnosis for this admission?: Yes Plan: 09/29/20204369-08-mcrd-old male with history of COPD admitted with shortness of breath. Chest x-ray suggestive of small right pleural effusion and questionable pulmonary edema. Pulse ox is 92% 4 L this morning. Comfortably in the bed communicating well. BNP is 12,000. Elevated BNP may be secondary to CKD. Echocardiogram report is pending at this time. 09/30/2020-patient complained of severe shortness of breath this morning. Placed on nonrebreather. BNP is elevated.CT chest without contrast was requested. (2) Eczema Qualifiers: Eczema type: other Qualified Code(s): L30.8 - Other specified dermatitis Is this a current diagnosis for this admission?: No (3) Emphysema of lung Qualifiers: Emphysema type: centrilobular Qualified Code(s): J43.2 - Centrilobular emphysema Is this a current diagnosis for this admission?: No (4) Person under investigation for COVID-19 Is this a current diagnosis for this admission?: Yes Plan: 09/29/2020-Covid test is negative. (5) CKD (chronic kidney disease) Is this a current diagnosis for this admission?: No Plan: 09/29/2020-patient has history of chronic kidney disease. On admission serum creatinine is 1.6, creatinine this morning is 1.98. Patient has a stage III kid kameron disease. (6) CHF (congestive heart failure) Is this a current diagnosis for this admission?: No Plan: 09/30/2020-EF is 50 to 55%, with grade 2/3 diastolic heart failure. To start on Lasix 20 mg p.o. twice daily. - Plan Summary Summary: He has emphysema on his chest CT. BNP was elevated. He had a small right pleural effusion and a little bit of ankle edema. He was given 1 dose of Lasix in the ER. I cannot say for certain that he has heart failure, but I suspect he may have pulmonary hypertension, which could cause this constellation of findings. We will get an echocardiogram. We will continue 2 L of oxygen we will try to arrange for him to have this at the [facility]. Once his COPD medications are reconciled we will continue those. We will continue his Lipitor. Once we get the echocardiogram results we can determine what needs to be due next and he can likely be discharged back to the [facility]. - Time Anticipated Discharge Disposition: Long-Term Care Facility Anticipated Discharge Timeframe: within 48 hours
--- NOTE | 2020-09-30 14:42 | RADIOLOGY REPORT (SQ) ---
EXAM DESCRIPTION: CT CHEST WITHOUT IMAGES COMPLETED DATE/TIME: 09/30/2020 1:48 pm REASON FOR STUDY: acute resp failure COMPARISON: 09/28/2020 TECHNIQUE: CT scan performed of the chest without intravenous contrast. Images reviewed with lung, soft tissue and bone windows. Reconstructed coronal and sagittal MPR images reviewed. All images st ored on PACS. All CT scanners at this facility use dose modulation, iterative reconstruction, and/or weight based d osing when appropriate to reduce radiation dose to as low as reasonably achievable (ALARA). [facility]: Dose Right [facility]: CareDose [facility]: Dose Right [facility]: Teradose 4D [facility]: Smart SlamData RADIATION DOSE: CT Rad equipment meets quality standard of care and radiation dose reduction techniq ues were employed. CTDIvol: 6.0 mGy. DLP: 247 mGy-cm. mGy. LIMITATIONS: No technical limitations. FINDINGS: Small bilateral pleural effusions not significantly changed. There is increasing airspace disease with air bronchograms in the left lower lobe. More patchy airspace disease in the left uppe r lobe. No evidence cavitation or loculated fluid. Patent central airways. Moderate emphysema. IMPRESSION: Increasing airspace disease in the left lower lobe and to lesser degree the left upper l obe suspicious for pneumonia. Unchanged pleural effusions without evidence of loculation. TECHNICAL DOCUMENTATION: JOB ID: [id number] Quality ID # [id number]: Final reports with documentation of one or more dose reduction techniques (e.g., Au tomated exposure control, adjustment of the mA and/or kV according to patient size, use of iterative reconstruction technique) 2010 [employer]- All Rights Reserved Reading location - IP/workstation name: [email or web address]
--- NOTE | 2020-09-30 16:50 | CDI QUERY ---
CDI Query CDI Review: Dear Provider, Please specify and document in progress notes and D/C summary if you agree with the clinical data: ACUTE ON CHRONIC RESPIRATORY FAILURE ACUTE RESPIRATORY DISTRESS only OTHER Clinical data: HX COPD COPD exacerbation O2 sats 85% respiratory distress requiring nonrebreather / bipap Thanks, Elisabet Del Rosario, [facility] [phone]
[2020-09-30] MEDS: FUROSEMIDE 20 MG TABLET PO SCH (18:14)
[2020-09-30] MEDS: ATORVASTATIN CALCIUM 40 MG TABLET PO SCH (21:45)
[2020-10-01] MEDS: HEPARIN SOD (PORCINE) 5,000 UNIT/ML 1 ML VIAL SUBCUT SCH ×3 (05:10→21:25)
[2020-10-01] MEDS: HYDRALAZINE HCL 50 MG TABLET PO SCH ×3 (05:11→21:24)
[2020-10-01] MEDS ORDERED: PIPERACILLIN/TAZOBACTAM 3.375 GM VIAL IV SCH (07:00)
[2020-10-01 09:03] LABS: HEMATOCRIT 32.1 % (37.9-51.0); HEMOGLOBIN 10.3 g/dL (13.5-17.0); MEAN CORPUSCULAR HEMOGLOBIN 30.9 pg (27.0-33.4); MEAN CORPUSCULAR VOLUME 97 fl (80-97); PLATELET COUNT 239 10^3/uL (150-450); RED BLOOD COUNT 3.32 10^6/uL (4.35-5.55); RED CELL DISTRIBUTION WIDTH 14.2 % (11.5-14.0); WHITE BLOOD COUNT 12.8 10^3/uL (4.0-10.5)
[2020-10-01 09:27] LABS: ALBUMIN 3.3 g/dL (3.5-5.0); ALKALINE PHOSPHATASE 106 U/L (38-126); ANION GAP 11 (5-19); ASPARTATE AMINO TRANSFERASE 35 U/L (17-59); BILIRUBIN,DIRECT 0.3 mg/dL (0.0-0.4); BILIRUBIN,TOTAL 0.7 mg/dL (0.2-1.3); BLOOD UREA NITROGEN 41 mg/dL (7-20); CALCIUM 9.1 mg/dL (8.4-10.2); CARBON DIOXIDE 23 mmol/L (22-30); CHLORIDE 111 mmol/L (98-107); GLUCOSE 117 mg/dL (75-110); POTASSIUM 4.2 mmol/L (3.6-5.0); TOTAL PROTEIN 5.7 g/dL (6.3-8.2)
[2020-10-01 09:38] LABS: ABSOLUTE LYMPHOCYTES# (MANUAL) 1.3 10^3/uL (0.5-4.7); ABSOLUTE MONOCYTES # (MANUAL) 0.8 10^3/uL (0.1-1.4); BASOPHILS % (MANUAL) 0 % (0-2); EOSINOPHILS % (MANUAL) 14 % (0-6); LYMPHOCYTES % (MANUAL) 10 % (13-45); MONOCYTES % (MANUAL) 6 % (3-13); OVALOCYTES SLIGHT; PLATELET COMMENT ADEQUATE; POIKILOCYTOSIS SLIGHT; SEGMENTED NEUTROPHILS % (MAN) 70 % (42-78); TOTAL CELLS COUNTED 100
--- NOTE | 2020-10-01 09:51 | PDOC PROGRESS REPORT ---
Subjective Date:: 10/01/20 Subjective:: 65 year old male who lives at the [facility] he has a history of COPD and hyperlipidemia who presents with shortness of breath. He said he has had trouble with his breathing for about a week, and today apparently when he was complaining of shortness of breath he said it did not respond to nebulizer treatments. Pulse oximetry was checked and it was 85%. EMS checked it it was 88 percent. EMS put him on 4 L and brought him to the hospital. He got another nebulizer treatment and said his breathing was feeling better. He was hypoxic here and it was thought that he would probably need oxygen. They were unable to obtain it for him at the senior living facility until tomorrow. Scan of his chest showed a small right pleural effusion with a possible small amount of pulmonary edema. He had a little bit of pitting edema at the ankles on examination. BNP was elevated. He has no prior history of any heart disease or CHF. 09/29/[id number]-wamj-old male with history of COPD, hyperlipidemia admitted with shortness of breath. Pulse ox by EMS report is 88%. He was placed on 4 L of oxygen brought to the hospital for further evaluation. In the ER BNP is christiane vated. BNP is 9120 repeat BNP is 12,000 today. Patient is not in shortness of breath at the time of my examination on oxygen supplementation. 09/30/2093-09-mycs-old male with history of COPD on 4 L of oxygen [address] the [facility] living admitted for shortness of breath. Early this morning he went into respiratory distress was placed on a nonrebreather. Plan to do the CT chest without contrast today. To continue to provide oxygen supplementation by nonrebreather. 10/01/2020-patient is still on nonrebreather this morning. CT scan suggestive of left-sided pneumonia. Started on IV vancomycin, Zosyn. He acute hypoxic restaurant failure may be secondary to underlying COPD and COPD exacerbation, left-sided pneumonia. COVID-19 is negative. Reason For Visit: DYSPNEA,HYPOXIA Physical Exam Vital Signs: Temp Pulse Resp BP Pulse Ox 97.6 F 92 17 174/73 H 99 10/01/20 07:38 10/01/20 07:38 10/01/20 07:38 10/01/20 07:38 10/01/20 07:38 Intake & Output 09/30/20 10/01/20 10/02/20 06:59 06:59 06:59 Intake Total 775 1060 Output Total 500 620 Balance 275 440 Weight 61 kg General appearance: PRESENT: no acute distress, cooperative, thin Head exam: PRESENT: atraumatic Eye exam: PRESENT: conjunctiva pale, PERRLA Ear exam: PRESENT: normal external ear exam Teeth exam: PRESENT: poor dentation Neck exam: ABSENT: carotid bruit, JVD, lymphadenopathy, thyromegaly Respiratory exam: PRESENT: decreased breath sounds Cardiovascular exam: PRESENT: RRR. ABSENT: diastolic murmur, rubs, systolic murmur Pulses: PRESENT: normal dorsalis pedis pul GI/Abdominal exam: PRESENT: normal bowel sounds, soft. ABSENT: distended, guarding, mass, organolmegaly, rebound, tenderness Rectal exam: PRESENT: deferred Extremities exam: PRESENT: full ROM. ABSENT: calf tenderness, clubbing, pedal edema Neurological exam: PRESENT: alert, awake, oriented to person, oriented to place, oriented to time, oriented to situation, CN II-XII grossly intact. ABSENT: motor sensory deficit Psychiatric exam: PRESENT: appropriate affect, normal mood. ABSENT: homicidal ideation, suicidal ideation Results Laboratory Results: 10/01/20 08:36 10/01/20 08:36 10/01/20 10/01/20 08:36 08:36 WBC 12.8 H RBC 3.32 L Hgb 10.3 L Hct 32.1 L MCV 97 MCH 30.9 MCHC 32.0 RDW 14.2 H Plt Count 239 Seg Neutrophils % Not Reportable Sodium 144.8 Potassium 4.2 Chloride 111 H Carbon Dioxide 23 Anion Gap 11 BUN 41 H Creatinine 2.07 H Est GFR ( Amer) 39 L Glucose 117 H Calcium 9.1 Magnesium 2.0 Total Bilirubin 0.7 AST 35 Alkaline Phosphatase 106 Total Protein 5.7 L Albumin 3.3 L 09/28/20 09/28/20 09/29/20 12:55 12:55 06:12 Creatine Kinase 247 H CK-MB (CK-2) 5.99 H Troponin I 0.069 NT-Pro-B Natriuret Pep 9120 H 22772 H Impressions: Chest X-Ray 09/28/20 13:16 IMPRESSION: Small pleural effusions. Chest CT 09/30/20 00:00 IMPRESSION: Increasing airspace disease in the left lower lobe and to lesser degree the left upper lobe suspicious for pneumonia. Unchanged pleural effusions without evidence of loculation. Assessment and Plan - Diagnosis (1) Dyspnea Qualifiers: Dyspnea type: shortness of breath Qualified Code(s): R06.02 - Shortness of breath; R06.00 - Dyspnea, unspecified; R06.01 - Orthopnea Is this a current diagnosis for this admission?: Yes Plan: 09/29/20207202-27-roec-old male with history of COPD admitted with shortness of breath. Chest x-ray suggestive of small right pleural effusion and questionable pulmonary edema. Pulse ox is 92% 4 L this morning. Comfortably in the bed communicating well. BNP is 12,000. Elevated BNP may be secondary to CKD. Echocardiogram report is pending at this time. 09/30/2020-patient complained of severe shortness of breath this morning. Placed on nonrebreather. BNP is elevated.CT chest without contrast was requested. 10/01/2020-acute hypoxic respiratory failure most likely secondary to COPD exacerbation, left-sided pneumonia. Started on IV Zosyn and vancomycin. To continue oxygen supplementations and patient is on DuoNeb nebulizations. (2) Eczema Qualifiers: Eczema type: other Qualified Code(s): L30.8 - Other specified dermatitis Is this a current diagnosis for this admission?: No (3) Emphysema of lung Qualifiers: Emphysema type: centrilobular Qualified Code(s): J43.2 - Centrilobular emphysema Is this a current diagnosis for this admission?: No (4) Person under investigation for COVID-19 Is this a current diagnosis for this admission?: Yes Plan: 09/29/2020-Covid test is negative. (5) CKD (chronic kidney disease) Is this a current diagnosis for this admission?: No Plan: 09/29/2020-patient has history of chronic kidney disease. On admission serum creatinine is 1.6, creatinine this morning is 1.98. Patient has a stage III kidney disease. (6) CHF (congestive heart failure) Is this a current diagnosis for this admission?: No Plan: 09/30/2020-EF is 50 to 55%, with grade 2/3 diastolic heart failure. To start on Lasix 20 mg p.o. twice daily. (7) Pneumonia Is this a current diagnosis for this admission?: Yes Plan: 10/01/2020-CT scan of the chest indicated of left-sided pneumonia. Started on vancomycin and Zosyn. There is a possibility of healthcare associated pneumonia. Patient lives in assisted living. To continue nonrebreather treatment. - Plan Summary Summary: He has emphysema on his chest CT. BNP was elevated. He had a small right pleural effusion and a little bit of ankle edema. He was given 1 dose of Lasix in the ER. I cannot say for certain that he has heart failure, but I suspect he may have pulmonary hypertension, which could cause this constellation of findings. We will get an echocardiogram. We will continue 2 L of oxygen we will try to arrange for him to have this at the senior living facility. Once his COPD medications are reconciled we will continue those. We will continue his Lipitor. Once we get the echocardiogram results we can determine what needs to be due next and he can likely be discharged back to the senior living facility. - Time Anticipated Discharge Disposition: Senior Living Care Facility Anticipated Discharge Timeframe: within 72 hours
[2020-10-01] MEDS ORDERED: VANCOMYCIN HCL INJ 1000 MG VIAL IV SCH (10:00)
[2020-10-01] MEDS: TRIAMCINOLONE ACETONIDE 0.1% CREAM 15 GM TOP SCH ×2 (10:35→18:27)
[2020-10-01] MEDS: AMLODIPINE BESYLATE 10 MG TABLET PO SCH (10:35)
[2020-10-01] MEDS: FLUTICASONE NASAL SPRAY 50 MCG/SPRY 120 SPRAY/16 GM NASL SCH ×2 (10:35→21:26)
[2020-10-01] MEDS: FUROSEMIDE 20 MG TABLET PO SCH ×2 (10:36→18:28)
[2020-10-01] MEDS: ASPIRIN 81 MG TABLET, ENT COATED PO SCH (10:36)
[2020-10-01] MEDS: METHYLPREDNISOLONE INJ 40 MG/1 ML SDV IV SCH ×2 (10:44→21:25)
[2020-10-01] MEDS: FLUTICASONE/VILANTEROL 100-25 MCG/DOSE IH SCH (10:46)
[2020-10-01] MEDS: UMECLIDINIUM BROMIDE 62.5 MCG/DOSE IH SCH (10:47)
[2020-10-01] MEDS: PIPERACILLIN SODIUM/TAZOBACTAM 3.375 GM in DEXTROSE 5%-WATER 100 ML IV SCH ×2 (10:51→18:28)
[2020-10-01] MEDS: VANCOMYCIN HCL 750 MG in DEXTROSE 5%-WATER 250 ML IV SCH (15:03)
[2020-10-01] MEDS: ATORVASTATIN CALCIUM 40 MG TABLET PO SCH (21:25)
[2020-10-02] MEDS: PIPERACILLIN SODIUM/TAZOBACTAM 3.375 GM in DEXTROSE 5%-WATER 100 ML IV SCH ×3 (02:28→18:24)
[2020-10-02] MEDS: HEPARIN SOD (PORCINE) 5,000 UNIT/ML 1 ML VIAL SUBCUT SCH ×3 (05:41→22:51)
[2020-10-02] MEDS: HYDRALAZINE HCL 50 MG TABLET PO SCH ×3 (05:43→22:50)
[2020-10-02 06:55] LABS: HEMATOCRIT 31.1 % (37.9-51.0); HEMOGLOBIN 10.2 g/dL (13.5-17.0); MEAN CORPUSCULAR HEMOGLOBIN 31.7 pg (27.0-33.4); MEAN CORPUSCULAR HGB CONC 32.7 g/dL (32.0-36.0); MEAN CORPUSCULAR VOLUME 97 fl (80-97); PLATELET COUNT 229 10^3/uL (150-450); RED BLOOD COUNT 3.22 10^6/uL (4.35-5.55); RED CELL DISTRIBUTION WIDTH 14.3 % (11.5-14.0); WHITE BLOOD COUNT 11.7 10^3/uL (4.0-10.5)
[2020-10-02 07:17] LABS: ALBUMIN 3.3 g/dL (3.5-5.0); ALKALINE PHOSPHATASE 103 U/L (38-126); ANION GAP 8 (5-19); ASPARTATE AMINO TRANSFERASE 30 U/L (17-59); BILIRUBIN,DIRECT 0.3 mg/dL (0.0-0.4); BILIRUBIN,TOTAL 0.5 mg/dL (0.2-1.3); BLOOD UREA NITROGEN 47 mg/dL (7-20); CALCIUM 9.2 mg/dL (8.4-10.2); CARBON DIOXIDE 23 mmol/L (22-30); CHLORIDE 109 mmol/L (98-107); GLUCOSE 133 mg/dL (75-110); POTASSIUM 4.3 mmol/L (3.6-5.0); TOTAL PROTEIN 5.8 g/dL (6.3-8.2)
[2020-10-02 07:26] LABS: ABSOLUTE LYMPHOCYTES# (MANUAL) 0.2 10^3/uL (0.5-4.7); ABSOLUTE MONOCYTES # (MANUAL) 0.4 10^3/uL (0.1-1.4); ANISOCYTOSIS 1+; BASOPHILS % (MANUAL) 0 % (0-2); EOSINOPHILS % (MANUAL) 0 % (0-6); LYMPHOCYTES % (MANUAL) 2 % (13-45); MONOCYTES % (MANUAL) 3 % (3-13); PLATELET COMMENT ADEQUATE; POLYCHROMASIA 1+; SEGMENTED NEUTROPHILS % (MAN) 95 % (42-78); TOTAL CELLS COUNTED 100
[2020-10-02] MEDS: TRIAMCINOLONE ACETONIDE 0.1% CREAM 15 GM TOP SCH ×2 (10:02→18:14)
[2020-10-02] MEDS: ASPIRIN 81 MG TABLET, ENT COATED PO SCH (10:06)
[2020-10-02] MEDS: METHYLPREDNISOLONE INJ 40 MG/1 ML SDV IV SCH ×2 (10:07→22:51)
[2020-10-02] MEDS: FUROSEMIDE 20 MG TABLET PO SCH ×2 (10:07→18:24)
[2020-10-02] MEDS: AMLODIPINE BESYLATE 10 MG TABLET PO SCH (10:07)
[2020-10-02] MEDS: UMECLIDINIUM BROMIDE 62.5 MCG/DOSE IH SCH (10:08)
[2020-10-02] MEDS: FLUTICASONE/VILANTEROL 100-25 MCG/DOSE IH SCH (10:08)
[2020-10-02] MEDS: FLUTICASONE NASAL SPRAY 50 MCG/SPRY 120 SPRAY/16 GM NASL SCH ×2 (10:09→22:52)
--- NOTE | 2020-10-02 10:50 | PDOC PROGRESS REPORT ---
Subjective Date:: 10/02/20 Subjective:: 65 year old male who lives at the [facility] he has a history of COPD and hyperlipidemia who presents with shortness of breath. He said he has had trouble with his breathing for about a week, and today apparently when he was complaining of shortness of breath he said it did not respond to nebulizer treatments. Pulse oximetry was checked and it was 85%. EMS checked it it was 88 percent. EMS put him on 4 L and brought him to the hospital. He got another nebulizer treatment and said his breathing was feeling better. He was hypoxic here and it was thought that he would probably need oxygen. They were unable to obtain it for him at the longterm facility until tomorrow. Scan of his chest showed a small right pleural effusion with a possible small amount of pulmonary edema. He had a little bit of pitting edema at the ankles on examination. BNP was elevated. He has no prior history of any heart disease or CHF. 09/29/[id number]-imit-old male with history of COPD, hyperlipidemia admitted with shortness of breath. Pulse ox by EMS report is 88%. He was placed on 4 L of oxygen brought to the hospital for further evaluation. In the ER BNP is christiane vated. BNP is 9120 repeat BNP is 12,000 today. Patient is not in shortness of breath at the time of my examination on oxygen supplementation. 09/30/2037-23-wcqq-old male with history of COPD on 4 L of oxygen at the [facility] admitted for shortness of breath. Early this morning he went into respiratory distress was placed on a nonrebreather. Plan to do the CT chest without contrast today. To continue to provide oxygen supplementation by nonrebreather. 10/01/2020-patient is still on nonrebreather this morning. CT scan suggestive of left-sided pneumonia. Started on IV vancomycin, Zosyn. He acute hypoxic restaurant failure may be secondary to underlying COPD and COPD exacerbation, left-sided pneumonia. COVID-19 is negative. 10/02/2020-patient is on 11 L of oxygen. Patient states she is feeling better. Comfortably in the bed communicating well. CT scan suggestive of a left-sided pneumonia receiving IV antibiotic therapy. Blood cultures are pending. Patient probably stay here in the hospital until Sunday. Reason For Visit: DYSPNEA,HYPOXIA Physical Exam Vital Signs: Temp Pulse Resp BP Pulse Ox 97.5 F 86 20 154/64 H 100 10/02/20 07:57 10/02/20 07:57 10/02/20 07:57 10/02/20 07:57 10/02/20 07:57 Intake & Output 10/01/20 10/02/20 10/03/20 06:59 06:59 06:59 Intake Total 1060 930 Output Total 620 680 Balance 440 250 General appearance: PRESENT: no acute distress, cooperative Head exam: PRESENT: atraumatic Eye exam: PRESENT: PERRLA Ear exam: PRESENT: normal external ear exam Mouth exam: PRESENT: moist, tongue midline Teeth exam: PRESENT: poor dentation Neck exam: ABSENT: carotid bruit, JVD, lymphadenopathy, thyromegaly Respiratory exam: PRESENT: decreased breath sounds Cardiovascular exam: PRESENT: RRR. ABSENT: diastolic murmur, rubs, systolic murmur GI/Abdominal exam: PRESENT: normal bowel sounds, soft. ABSENT: distended, guarding, mass, organolmegaly, rebound, tenderness Rectal exam: PRESENT: deferred Extremities exam: PRESENT: full ROM. ABSENT: calf tenderness, clubbing, pedal edema Neurological exam: PRESENT: alert, awake, oriented to person, oriented to place, oriented to time, oriented to situation, CN II-XII grossly intact. ABSENT: motor sensory deficit Psychiatric exam: PRESENT: appropriate affect, normal mood. ABSENT: homicidal ideation, suicidal ideation Results Laboratory Results: 10/02/20 06:08 10/02/20 06:08 10/02/20 10/02/20 06:08 06:08 WBC 11.7 H RBC 3.22 L Hgb 10.2 L Hct 31.1 L MCV 97 MCH 31.7 MCHC 32.7 RDW 14.3 H Plt Count 229 Seg Neutrophils % Not Reportable Sodium 140.0 Potassium 4.3 Chloride 109 H Carbon Dioxide 23 Anion Gap 8 BUN 47 H Creatinine 2.08 H Est GFR ( Amer) 39 L Glucose 133 H Calcium 9.2 Magnesium 2.1 Total Bilirubin 0.5 AST 30 Alkaline Phosphatase 103 Total Protein 5.8 L Albumin 3.3 L 09/28/20 09/28/20 09/29/20 12:55 12:55 06:12 Creatine Kinase 247 H CK-MB (CK-2) 5.99 H Troponin I 0.069 NT-Pro-B Natriuret Pep 9120 H 77046 H Impressions: Chest X-Ray 09/28/20 13:16 IMPRESSION: Small pleural effusions. Chest CT 09/30/20 00:00 IMPRESSION: Increasing airspace disease in the left lower lobe and to lesser degree the left upper lobe suspicious for pneumonia. Unchanged pleural effusions without evidence of loculation. Assessment and Plan - Diagnosis (1) Dyspnea Qualifiers: Dyspnea type: shortness of breath Qualified Code(s): R06.02 - Shortness of breath; R06.00 - Dyspnea, unspecified; R06.01 - Orthopnea Is this a current diagnosis for this admission?: Yes Plan: 09/29/[id number]-virb-old male with history of COPD admitted with shortness of breath. Chest x-ray suggestive of small right pleural effusion and questionable pulmonary edema. Pulse ox is 92% 4 L this morning. Comfortably in the bed communicating well. BNP is 12,000. Elevated BNP may be secondary to CKD. Echocardiogram report is pending at this time. 09/30/2020-patient complained of severe shortness of breath this morning. Placed on nonrebreather. BNP is elevated.CT chest without contrast was requested. 10/01/2020-acute hypoxic respiratory failure most likely secondary to COPD exacerbation, left-sided pneumonia. Started on IV Zosyn and vancomycin. To continue oxygen supplementations and patient is on DuoNeb nebulizations. 10/02/2020-patient is still on [address] scan shows emphysema, possible left lower pneumonia. To continue IV vancomycin and Zosyn at this time. Blood cultures are pending. (2) Eczema Qualifiers: Eczema type: other Qualified Code(s): L30.8 - Other specified dermatitis Is this a current diagnosis for this admission?: No (3) Emphysema of lung Qualifiers: Emphysema type: centrilobular Qualified Code(s): J43.2 - Centrilobular emphysema Is this a current diagnosis for this admission?: No (4) Person under investigation for COVID-19 Is this a current diagnosis for this admission?: Yes Plan: 09/29/2020-Covid test is negative. (5) CKD (chronic kidney disease) Is this a current diagnosis for this admission?: No Plan: 09/29/2020-patient has history of chronic kidney disease. On admission serum creatinine is 1.6, creatinine this morning is 1.98. Patient has a stage III kidney disease. 10/02/2020-serum creatinine today is 2.08. Stable. (6) CHF (congestive heart failure) Is this a current diagnosis for this admission?: No Plan: 09/30/2020-EF is 50 to 55%, with grade 2/3 diastolic heart failure. To start on Lasix 20 mg p.o. twice daily. (7) Pneumonia Is this a current diagnosis for this admission?: Yes Plan: 10/01/2020-CT scan of the chest indicated of left-sided pneumonia. Started on vancomycin and Zosyn. There is a possibility of healthcare associated pneumonia. Patient lives in assisted living. To continue nonrebreather treatment. - Plan Summary Summary: He has emphysema on his chest CT. BNP was elevated. He had a small right pleural effusion and a little bit of ankle edema. He was given 1 dose of Lasix in the ER. I cannot say for certain that he has heart failure, but I suspect he may have pulmonary hypertension, which could cause this constellation of findings. We will get an echocardiogram. We will continue 2 L of oxygen we will try to arrange for him to have this at the longterm facility. Once his COPD medications are reconciled we will continue those. We will continue his Lipitor. Once we get the echocardiogram results we can determine what needs to be due next and he can likely be discharged back to the longterm facility. - Time Anticipated Discharge Disposition: Home, Self Care Anticipated Discharge Timeframe: within 48 hours
[2020-10-02] MEDS: VANCOMYCIN HCL 750 MG in DEXTROSE 5%-WATER 250 ML IV SCH (14:27)
[2020-10-02] MEDS: ATORVASTATIN CALCIUM 40 MG TABLET PO SCH (22:51)
[2020-10-03] MEDS: PIPERACILLIN SODIUM/TAZOBACTAM 3.375 GM in DEXTROSE 5%-WATER 100 ML IV SCH ×2 (03:45→09:20)
[2020-10-03] MEDS: HYDRALAZINE HCL 50 MG TABLET PO SCH ×3 (05:18→21:41)
[2020-10-03] MEDS: HEPARIN SOD (PORCINE) 5,000 UNIT/ML 1 ML VIAL SUBCUT SCH ×3 (06:54→21:44)
[2020-10-03] MEDS: TRIAMCINOLONE ACETONIDE 0.1% CREAM 15 GM TOP SCH ×2 (09:14→17:44)
[2020-10-03] MEDS: FUROSEMIDE 20 MG TABLET PO SCH ×2 (09:15→17:46)
[2020-10-03] MEDS: FLUTICASONE NASAL SPRAY 50 MCG/SPRY 120 SPRAY/16 GM NASL SCH ×2 (09:16→21:44)
[2020-10-03] MEDS: FLUTICASONE/VILANTEROL 100-25 MCG/DOSE IH SCH (09:16)
[2020-10-03] MEDS: UMECLIDINIUM BROMIDE 62.5 MCG/DOSE IH SCH (09:16)
[2020-10-03] MEDS: ASPIRIN 81 MG TABLET, ENT COATED PO SCH (09:16)
[2020-10-03] MEDS: METHYLPREDNISOLONE INJ 40 MG/1 ML SDV IV SCH ×2 (09:17→21:44)
[2020-10-03] MEDS: AMLODIPINE BESYLATE 10 MG TABLET PO SCH (09:20)
--- NOTE | 2020-10-03 09:34 | PDOC PROGRESS REPORT ---
Subjective Date:: 10/03/20 Subjective:: 65 year old male who lives at the [facility] he has a history of COPD and hyperlipidemia who presents with shortness of breath. He said he has had trouble with his breathing for about a week, and today apparently when he was complaining of shortness of breath he said it did not respond to nebulizer treatments. Pulse oximetry was checked and it was 85%. EMS checked it it was 88 percent. EMS put him on 4 L and brought him to the hospital. He got another nebulizer treatment and said his breathing was feeling better. He was hypoxic here and it was thought that he would probably need oxygen. They were unable to obtain it for him at the longterm facility until tomorrow. Scan of his chest showed a small right pleural effusion with a possible small amount of pulmonary edema. He had a little bit of pitting edema at the ankles on examination. BNP was elevated. He has no prior history of any heart disease or CHF. 09/29/[id number]-kzlp-old male with history of COPD, hyperlipidemia admitted with shortness of breath. Pulse ox by EMS report is 88%. He was placed on 4 L of oxygen brought to the hospital for further evaluation. In the ER BNP is christiane vated. BNP is 9120 repeat BNP is 12,000 today. Patient is not in shortness of breath at the time of my examination on oxygen supplementation. 09/30/2056-99-kazk-old male with history of COPD on 4 L of oxygen at the [facility] admitted for shortness of breath. Early this morning he went into respiratory distress was placed on a nonrebreather. Plan to do the CT chest without contrast today. To continue to provide oxygen supplementation by nonrebreather. 10/01/2020-patient is still on nonrebreather this morning. CT scan suggestive of left-sided pneumonia. Started on IV vancomycin, Zosyn. He acute hypoxic restaurant failure may be secondary to underlying COPD and COPD exacerbation, left-sided pneumonia. COVID-19 is negative. 10/02/2020-patient is on 11 L of oxygen. Patient states she is feeling better. Comfortably in the bed communicating well. CT scan suggestive of a left-sided pneumonia receiving IV antibiotic therapy. Blood cultures are pending. Patient probably stay here in the hospital until Sunday. 10/03/2020-patient is still on 11 L of oxygen. Comfortably in the bed sleeping. Denies any problems. Feeling better. Plan is to continue antibiotic therapy and continue oxygen supplementations at this time. He is on vancomycin, Zosyn at this time. Reason For Visit: DYSPNEA,HYPOXIA Physical Exam Vital Signs: Temp Pulse Resp BP Pulse Ox 98.4 F 86 18 98/60 L 90 L 10/03/20 08:23 10/03/20 08:00 10/03/20 08:00 10/03/20 08:00 10/03/20 08:00 Intake & Output 10/02/20 10/03/20 10/04/20 06:59 06:59 06:59 Intake Total 930 1490 Output Total 680 1410 Balance 250 80 General appearance: PRESENT: no acute distress, cooperative, thin Head exam: PRESENT: atraumatic Eye exam: PRESENT: conjunctiva pale, PERRLA Mouth exam: PRESENT: moist, tongue midline Teeth exam: PRESENT: poor dentation Neck exam: ABSENT: carotid bruit, JVD, lymphadenopathy, thyromegaly Respiratory exam: PRESENT: crackles, decreased breath sounds Cardiovascular exam: PRESENT: RRR. ABSENT: diastolic murmur, rubs, systolic murmur GI/Abdominal exam: PRESENT: normal bowel sounds, soft. ABSENT: distended, guarding, mass, organolmegaly, rebound, tenderness Rectal exam: PRESENT: deferred Extremities exam: PRESENT: full ROM. ABSENT: calf tenderness, clubbing, pedal edema Neurological exam: PRESENT: alert, awake, oriented to person, oriented to place, oriented to time, oriented to situation, CN II-XII grossly intact. ABSENT: motor sensory deficit Psychiatric exam: PRESENT: appropriate affect, normal mood. ABSENT: homicidal ideation, suicidal ideation Results Laboratory Results: 10/02/20 06:08 10/02/20 06:08 09/28/20 09/28/20 09/29/20 12:55 12:55 06:12 Creatine Kinase 247 H CK-MB (CK-2) 5.99 H Troponin I 0.069 NT-Pro-B Natriuret Pep 9120 H [id number] H Impressions: Chest X-Ray 09/28/20 13:16 IMPRESSION: Small pleural effusions. Chest CT 09/30/20 00:00 IMPRESSION: Increasing airspace disease in the left lower lobe and to lesser degree the left upper lobe suspicious for pneumonia. Unchanged pleural effusions without evidence of loculation. Assessment and Plan - Diagnosis (1) Dyspnea Qualifiers: Dyspnea type: shortness of breath Qualified Code(s): R06.02 - Shortness of breath; R06.00 - Dyspnea, unspecified; R06.01 - Orthopnea Is this a current diagnosis for this admission?: Yes Plan: 09/29/[id number]-vttq-old male with history of COPD admitted with shortness of breath. Chest x-ray suggestive of small right pleural effusion and questionable pulmonary edema. Pulse ox is 92% 4 L this morning. Comfortably in the bed comm unicating well. BNP is 12,000. Elevated BNP may be secondary to CKD. Echocardiogram report is pending at this time. 09/30/2020-patient complained of severe shortness of breath this morning. Plac ed on nonrebreather. BNP is elevated.CT chest without contrast was requested. 10/01/2020-acute hypoxic respiratory failure most likely secondary to COPD exacerbation, left-sided pneumonia. Started on IV Zosyn and vancomycin. To continue oxygen supplementations and patient is on DuoNeb nebulizations. 10/02/2020-patient is still on [address] scan shows emphysema, possible left lower pneumonia. To continue IV vancomycin and Zosyn at this time. Blood cultures are pending. 10/03/20-patient admitted with acute on chronic hypoxic respiratory failure with hypercapnia. Presently on 11 L of oxygen. He is a DNR/DNI. Chest x-ray indicative of emphysema, left-sided pneumonia. Plan is to continue oxygen supplementation and IV antibiotic therapy. To continue IV vancomycin, Zosyn at this time. (2) Eczema Qualifiers: Eczema type: other Qualified Code(s): L30.8 - Other specified dermatitis Is this a current diagnosis for this admission?: No (3) Emphysema of lung Qualifiers: Emphysema type: centrilobular Qualified Code(s): J43.2 - Centrilobular emphysema Is this a current diagnosis for this admission?: No (4) Person under investigation for COVID-19 Is this a current diagnosis for this admission?: Yes Plan: 09/29/2020-Covid test is negative. (5) CKD (chronic kidney disease) Is this a current diagnosis for this admission?: No Plan: 09/29/2020-patient has history of chronic kidney disease. On admission serum creatinine is 1.6, creatinine this morning is 1.98. Patient has a stage III kidney disease. 10/02/2020-serum creatinine today is 2.08. Stable. (6) CHF (congestive heart failure) Is this a current diagnosis for this admission?: No Plan: 09/30/2020-EF is 50 to 55%, with grade 2/3 diastolic heart failure. To start on Lasix 20 mg p.o. twice daily. (7) Pneumonia Is this a current diagnosis for this admission?: Yes Plan: 10/01/2020-CT scan of the chest indicated of left-sided pneumonia. Started on vancomycin and Zosyn. There is a possibility of healthcare associated pneumonia. Patient lives in assisted living. To continue nonrebreather treatment. 10/03/2020-patient is on 11 L of oxygen this morning. CODE STATUS is DNR/DNI. Plan is to continue IV antibiotic therapy at this time. Blood cultures are negative so far. - Plan Summary Summary: He has emphysema on his chest CT. BNP was elevated. He had a small right pleural effusion and a little bit of ankle edema. He was given 1 dose of Lasix in the ER. I cannot say for certain that he has heart failure, but I suspect he may have pulmonary hypertension, which could cause this constellation of findings. We will get an echocardiogram. We will continue 2 L of oxygen we will try to arrange for him to have this at the longterm facility. Once his COPD medications are reconciled we will continue those. We will continue his Lipitor. Once we get the echocardiogram results we can determine what needs to be due next and he can likely be discharged back to the longterm facility. - Time Anticipated Discharge Disposition: [facility] Anticipated Discharge Timeframe: within 72 hours
[2020-10-03] MEDS: VANCOMYCIN HCL 750 MG in DEXTROSE 5%-WATER 250 ML IV SCH (12:51)
[2020-10-03] MEDS: PIPERACILLIN SODIUM/TAZOBACTAM 3.375 GM in NORMAL SALINE 100 ML IV SCH (17:47)
[2020-10-03] MEDS: ATORVASTATIN CALCIUM 40 MG TABLET PO SCH (21:44)
[2020-10-04] MEDS: PIPERACILLIN SODIUM/TAZOBACTAM 3.375 GM in NORMAL SALINE 100 ML IV SCH ×3 (01:58→17:46)
[2020-10-04 05:20] LABS: HEMATOCRIT 32.4 % (37.9-51.0); HEMOGLOBIN 10.6 g/dL (13.5-17.0); MEAN CORPUSCULAR HEMOGLOBIN 31.2 pg (27.0-33.4); MEAN CORPUSCULAR HGB CONC 32.7 g/dL (32.0-36.0); MEAN CORPUSCULAR VOLUME 96 fl (80-97); PLATELET COUNT 241 10^3/uL (150-450); RED BLOOD COUNT 3.39 10^6/uL (4.35-5.55); RED CELL DISTRIBUTION WIDTH 14.2 % (11.5-14.0)
[2020-10-04 05:45] LABS: ALBUMIN 3.5 g/dL (3.5-5.0); ALKALINE PHOSPHATASE 96 U/L (38-126); ANION GAP 9 (5-19); ASPARTATE AMINO TRANSFERASE 32 U/L (17-59); BILIRUBIN,DIRECT 0.3 mg/dL (0.0-0.4); BILIRUBIN,TOTAL 0.5 mg/dL (0.2-1.3); BLOOD UREA NITROGEN 52 mg/dL (7-20); CALCIUM 9.4 mg/dL (8.4-10.2); CARBON DIOXIDE 25 mmol/L (22-30); CHLORIDE 105 mmol/L (98-107); GLUCOSE 111 mg/dL (75-110); POTASSIUM 4.4 mmol/L (3.6-5.0)
[2020-10-04] MEDS: HYDRALAZINE HCL 50 MG TABLET PO SCH ×3 (06:04→21:18)
[2020-10-04] MEDS: HEPARIN SOD (PORCINE) 5,000 UNIT/ML 1 ML VIAL SUBCUT SCH ×3 (06:04→21:18)
[2020-10-04 06:49] LABS: ABSOLUTE LYMPHOCYTES# (MANUAL) 0.4 10^3/uL (0.5-4.7); ABSOLUTE MONOCYTES # (MANUAL) 0.2 10^3/uL (0.1-1.4); ANISOCYTOSIS SLIGHT; BASOPHILS % (MANUAL) 0 % (0-2); EOSINOPHILS % (MANUAL) 0 % (0-6); LYMPHOCYTES % (MANUAL) 3 % (13-45); MONOCYTES % (MANUAL) 2 % (3-13); PLATELET COMMENT ADEQUATE; RBC MORPHOLOGY COMMENT NORMO-CYTIC/CHROMIC; SEGMENTED NEUTROPHILS % (MAN) 95 % (42-78); TOTAL CELLS COUNTED 100
[2020-10-04 06:50] LABS: BURR CELLS SLIGHT; OVALOCYTES SLIGHT
[2020-10-04 06:51] LABS: POLYCHROMASIA SLIGHT
[2020-10-04] MEDS: FUROSEMIDE 20 MG TABLET PO SCH ×2 (09:32→17:46)
[2020-10-04] MEDS: ASPIRIN 81 MG TABLET, ENT COATED PO SCH (09:32)
[2020-10-04] MEDS: FLUTICASONE NASAL SPRAY 50 MCG/SPRY 120 SPRAY/16 GM NASL SCH ×2 (09:32→21:18)
--- NOTE | 2020-10-04 09:32 | PDOC PROGRESS REPORT ---
Subjective Date:: 10/04/20 Subjective:: 65 year old male who lives at the [facility] ER he has a history of COPD and hyperlipidemia who presents with shortness of breath. He said he has had trouble with his breathing for about a week, and today apparently when he was complaining of shortness of breath he said it did not respond to nebulizer treatments. Pulse oximetry was checked and it was 85%. EMS checked it it was 88 percent. EMS put him on 4 L and brought him to the hospital. He got another nebulizer treatment and said his breathing was feeling better. He was hypoxic here and it was thought that he would probably need oxygen. They were unable to [facility] until tomorrow. Scan of his chest showed a small right pleural effusion with a possible small amount of pulmonary edema. He had a little bit of pitting edema at the ankles on examination. BNP was elevated. He has no prior history of any heart disease or CHF. 09/29/[id number]-bnlf-old male with history of COPD, hyperlipidemia admitted with shortness of breath. Pulse ox by EMS report is 88%. He was placed on 4 L of oxygen brought to the hospital for further evaluation. In the ER BNP is christiane vated. BNP is 9120 repeat BNP is 12,000 today. Patient is not in shortness of breath at the time of my examination on oxygen supplementation. 09/30/2036-09-ixpa-old male with history of COPD on 4 L of oxygen at the [facility] admitted for shortness of breath. Early this morning he went into respiratory distress was placed on a nonrebreather. Plan to do the CT chest without contrast today. To continue to provide oxygen supplementation by nonrebreather. 10/01/2020-patient is still on nonrebreather this morning. CT scan suggestive of left-sided pneumonia. Started on IV vancomycin, Zosyn. He acute hypoxic restaurant failure may be secondary to underlying COPD and COPD exacerbation, left-sided pneumonia. COVID-19 is negative. 10/02/2020-patient is on 11 L of oxygen. Patient states she is feeling better. Comfortably in the bed communicating well. CT scan suggestive of a left-sided pneumonia receiving IV antibiotic therapy. Blood cultures are pending. Patient probably stay here in the hospital until Sunday. 10/03/2020-patient is still on 11 L of oxygen. Comfortably in the bed sleeping. Denies any problems. Feeling better. Plan is to continue antibiotic therapy and continue oxygen supplementations at this time. He is on vancomycin, Zosyn at this time. 10/04/2048-19-wzvs-old male with history of COPD, emphysema of the lungs admitted with acute hypoxic respiratory failure. COVID-19 is negative. This morning he is on 4 L of oxygen pulse ox is 95%. Reason For Visit: DYSPNEA,HYPOXIA Physical Exam Vital Signs: Temp Pulse Resp BP Pulse Ox 97.6 F 94 17 91/63 L 94 10/03/20 23:17 10/04/20 07:29 10/04/20 07:29 10/04/20 07:29 10/04/20 07:29 Intake & Output 10/03/20 10/04/20 10/05/20 06:59 06:59 06:59 Intake Total 1490 1522 Output Total 1410 2100 Balance 80 -578 Weight 58.2 kg General appearance: PRESENT: no acute distress, cooperative Head exam: PRESENT: atraumatic Eye exam: PRESENT: PERRLA Mouth exam: PRESENT: moist, tongue midline Teeth exam: PRESENT: poor dentation Neck exam: ABSENT: carotid bruit, JVD, lymphadenopathy, thyromegaly Respiratory exam: PRESENT: decreased breath sounds, wheezes Cardiovascular exam: PRESENT: RRR. ABSENT: diastolic murmur, rubs, systolic murmur GI/Abdominal exam: PRESENT: normal bowel sounds, soft. ABSENT: distended, guarding, mass, organolmegaly, rebound, tenderness Rectal exam: PRESENT: deferred Extremities exam: PRESENT: full ROM. ABSENT: calf tenderness, clubbing, pedal edema Neurological exam: PRESENT: alert, awake, oriented to person, oriented to place, oriented to time, oriented to situation, CN II-XII grossly intact. ABSENT: motor sensory deficit Psychiatric exam: PRESENT: appropriate affect, normal mood. ABSENT: homicidal ideation, suicidal ideation Results Laboratory Results: 10/04/20 04:40 10/04/20 04:40 10/04/20 10/04/20 04:40 04:40 WBC 12.0 H RBC 3.39 L Hgb 10.6 L Hct 32.4 L MCV 96 MCH 31.2 MCHC 32.7 RDW 14.2 H Plt Count 241 Seg Neutrophils % Not Reportable Sodium 139.3 Potassium 4.4 Chloride 105 Carbon Dioxide 25 Anion Gap 9 BUN 52 H Creatinine 2.20 H Est GFR ( Amer) 37 L Glucose 111 H Calcium 9.4 Magnesium 2.1 Total Bilirubin 0.5 AST 32 Alkaline Phosphatase 96 Total Protein 6.0 L Albumin 3.5 09/28/20 09/28/20 09/29/20 12:55 12:55 06:12 Creatine Kinase 247 H CK-MB (CK-2) 5.99 H Troponin I 0.069 NT-Pro-B Natriuret Pep 9120 H 15120 H Impressions: Chest X-Ray 09/28/20 13:16 IMPRESSION: Small pleural effusions. Chest CT 09/30/20 00:00 IMPRESSION: Increasing airspace disease in the left lower lobe and to lesser degree the left upper lobe suspicious for pneumonia. Unchanged pleural effusions without evidence of loculation. Assessment and Plan - Diagnosis (1) Dyspnea Qualifiers: Dyspnea type: shortness of breath Qualified Code(s): R06.02 - Shortness of breath; R06.00 - Dyspnea, unspecified; R06.01 - Orthopnea Is this a current diagnosis for this admission?: Yes Plan: 09/29/20200927-22-kmxl-old male with history of COPD admitted with shortness of breath. Chest x-ray suggestive of small right pleural effusion and questionable pulmonary edema. Pulse ox is 92% 4 L this morning. Comfortably in the bed communicating well. BNP is 12,000. Elevated BNP may be secondary to CKD. Echocardiogram report is pending at this time. 09/30/2020-patient complained of severe shortness of breath this morning. Placed on nonrebreather. BNP is elevated.CT chest without contrast was requested. 10/01/2020-acute hypoxic respiratory failure most likely secondary to COPD exa cerbation, left-sided pneumonia. Started on IV Zosyn and vancomycin. To continue oxygen supplementations and patient is on DuoNeb nebulizations. 10/02/2020-patient is still on [address] scan shows emphysema, possible left lower pneumonia. To continue IV vancomycin and Zosyn at this ti me. Blood cultures are pending. 10/03/20-patient admitted with acute on chronic hypoxic respiratory failure with hypercapnia. Presently on 11 L of oxygen. He is a DNR/DNI. Chest x-ray indicative of emphysema, left-sided pneumonia. Plan is to continue oxygen supplementation and IV antibiotic therapy. To continue IV vancomycin, Zosyn at this time. 10/04/20-patient admitted with acute hypoxic respiratory failure. Oxygen requirements are improving. Chest x-ray suggestive of emphysema, left-sided pneumonia. To continue IV vancomycin and Zosyn at this time. Blood cultures are negative so far. (2) Eczema Qualifiers: Eczema type: other Qualified Code(s): L30.8 - Other specified dermatitis Is this a current diagnosis for this admission?: No (3) Emphysema of lung Qualifiers: Emphysema type: centrilobular Qualified Code(s): J43.2 - Centrilobular emphysema Is this a current diagnosis for this admission?: No (4) Person under investigation for COVID-19 Is this a current diagnosis for this admission?: Yes Plan: 09/29/2020-Covid test is negative. (5) CKD (chronic kidney disease) Is this a current diagnosis for this admission?: No Plan: 09/29/2020-patient has history of chronic kidney disease. On admission serum creatinine is 1.6, creatinine this morning is 1.98. Patient has a stage III kidney disease. 10/02/2020-serum creatinine today is 2.08. Stable. 10/04/2020-serum creatinine today is 2.2. Stable. (6) CHF (congestive heart failure) Is this a current diagnosis for this admission?: No Plan: 09/30/2020-EF is 50 to 55%, with grade 2/3 diastolic heart failure. To start on Lasix 20 mg p.o. twice daily. 10/04/2020-blood pressure today is 167/71. Euvolemic. Pulse ox is 95% on 4 L. Plan is to continue the present management at this time. (7) Pneumonia Is this a current diagnosis for this admission?: Yes Plan: 10/01/2020-CT scan of the chest indicated of left-sided pneumonia. Started on vancomycin and Zosyn. There is a possibility of healthcare associated pneumonia. Patient lives in assisted living. To continue nonrebreather treatment. 10/03/2020-patient is on 11 L of oxygen this morning. CODE STATUS is DNR/DNI. Plan is to continue IV antibiotic therapy at this time. Blood cultures are negative so far. 10/04/2020-this morning he is on 4 L of oxygen via nasal cannula. Comfortably in the bed communicating well. Chest bilateral dose decreased no wheezing no crepitations present. Plan is to continue the antibiotic therapy at this time. - Plan Summary Summary: He has emphysema on his chest CT. BNP was elevated. He had a small right pleural effusion and a little bit of ankle edema. He was given 1 dose of Lasix in the ER. I cannot say for certain that he has heart failure, but I suspect he may have pulmonary hypertension, which could cause this constellation of findings. We will get an echocardiogram. We will continue 2 L of oxygen we will try to arrange for him to have [facility]. Once his COPD medications are reconciled we will continue those. We will continue his Lipitor. Once we get the echocardiogram results we can determine what needs to be due next and he can likely be discharged back to the jail facility. - Time Anticipated Discharge Disposition: Home, Self Care Anticipated Discharge Timeframe: within 48 hours
[2020-10-04] MEDS: UMECLIDINIUM BROMIDE 62.5 MCG/DOSE IH SCH (09:33)
[2020-10-04] MEDS: METHYLPREDNISOLONE INJ 40 MG/1 ML SDV IV SCH ×2 (09:33→21:18)
[2020-10-04] MEDS: FLUTICASONE/VILANTEROL 100-25 MCG/DOSE IH SCH (09:33)
[2020-10-04] MEDS: TRIAMCINOLONE ACETONIDE 0.1% CREAM 15 GM TOP SCH ×2 (09:33→17:38)
[2020-10-04] MEDS: AMLODIPINE BESYLATE 10 MG TABLET PO SCH (09:34)
[2020-10-04] MEDS: VANCOMYCIN HCL 750 MG in DEXTROSE 5%-WATER 250 ML IV SCH (11:10)
[2020-10-04 12:31] LABS: VANCOMYCIN,TROUGH 16.3 ug/mL (5.0-20.0)
[2020-10-04] MEDS: ATORVASTATIN CALCIUM 40 MG TABLET PO SCH (21:18)
[2020-10-05] MEDS: PIPERACILLIN SODIUM/TAZOBACTAM 3.375 GM in NORMAL SALINE 100 ML IV SCH ×3 (02:47→17:20)
[2020-10-05] MEDS: HEPARIN SOD (PORCINE) 5,000 UNIT/ML 1 ML VIAL SUBCUT SCH ×3 (05:19→21:30)
[2020-10-05] MEDS: HYDRALAZINE HCL 50 MG TABLET PO SCH ×3 (05:19→21:30)
[2020-10-05] MEDS: TRIAMCINOLONE ACETONIDE 0.1% CREAM 15 GM TOP SCH ×2 (09:09→17:06)
[2020-10-05] MEDS: ASPIRIN 81 MG TABLET, ENT COATED PO SCH (09:16)
[2020-10-05] MEDS: METHYLPREDNISOLONE INJ 40 MG/1 ML SDV IV SCH ×2 (09:16→21:30)
[2020-10-05] MEDS: UMECLIDINIUM BROMIDE 62.5 MCG/DOSE IH SCH (09:17)
[2020-10-05] MEDS: FLUTICASONE/VILANTEROL 100-25 MCG/DOSE IH SCH (09:17)
[2020-10-05] MEDS: FUROSEMIDE 20 MG TABLET PO SCH ×2 (09:17→17:20)
[2020-10-05] MEDS: AMLODIPINE BESYLATE 10 MG TABLET PO SCH (09:17)
[2020-10-05] MEDS: FLUTICASONE NASAL SPRAY 50 MCG/SPRY 120 SPRAY/16 GM NASL SCH ×2 (09:18→21:30)
[2020-10-05] MEDS: VANCOMYCIN HCL 750 MG in DEXTROSE 5%-WATER 250 ML IV SCH (11:34)
--- NOTE | 2020-10-05 12:01 | PDOC PROGRESS REPORT ---
Subjective Date:: 10/05/20 Subjective:: Patient was sleeping. Sleep was sound as I had to also him several times to wak e him up. After that he was relatively nonparticipatory in the encounter. He did answer no to the questions of short of breath, having any pain, any other complaints. Reason For Visit: DYSPNEA,HYPOXIA Physical Exam Vital Signs: Temp Pulse Resp BP Pulse Ox 98.0 F 80 16 178/77 H 99 10/05/20 08:09 10/05/20 08:00 10/05/20 08:00 10/05/20 08:00 10/05/20 08:00 Intake & Output 10/04/20 10/05/20 10/06/20 06:59 06:59 06:59 Intake Total 1522 1450 Output Total 2100 1620 Balance -578 -170 Weight 58.2 kg 60.2 kg 60.2 kg General appearance: PRESENT: no acute distress, well-developed Head exam: PRESENT: atraumatic, normocephalic Ear exam: PRESENT: normal external ear exam. ABSENT: bleeding, drainage Respiratory exam: PRESENT: clear to auscultation jessie, symmetrical, unlabored. ABSENT: rales, rhonchi, tachypnea, wheezes Cardiovascular exam: PRESENT: RRR, +S1, +S2. ABSENT: bradycardia, diastolic murmur, irregular rhythm, systolic murmur, tachycardia GI/Abdominal exam: PRESENT: normal bowel sounds, soft. ABSENT: tenderness Rectal exam: PRESENT: deferred Gentrourinary exam: ABSENT: indwelling catheter Extremities exam: ABSENT: pedal edema Neurological exam: PRESENT: awake. ABSENT: alert - Just woke up. Very somnolent. Psychiatric exam: PRESENT: flat affect. ABSENT: agitated, anxious Focused psych exam: ABSENT: delusional, paranoid, restlessness Skin exam: PRESENT: dry, normal color, warm Results Laboratory Results: 10/04/20 04:40 10/04/20 11:40 10/04/20 11:40 Creatinine 2.02 H Est GFR ( Amer) 40 L 09/28/20 09/28/20 09/29/20 12:55 12:55 06:12 Creatine Kinase 247 H CK-MB (CK-2) 5.99 H Troponin I 0.069 NT-Pro-B Natriuret Pep 9120 H 30415 H Impressions: Chest X-Ray 09/28/20 13:16 IMPRESSION: Small pleural effusions. Chest CT 09/30/20 00:00 IMPRESSION: Increasing airspace disease in the left lower lobe and to lesser degree the left upper lobe suspicious for pneumonia. Unchanged pleural effusions without evidence of loculation. Assessment and Plan - Diagnosis (1) Dyspnea Qualifiers: Dyspnea type: shortness of breath Qualified Code(s): R06.02 - Shortness of breath; R06.00 - Dyspnea, unspecified; R06.01 - Orthopnea Is this a current diagnosis for this admission?: Yes (2) Emphysema of lung Qualifiers: Emphysema type: centrilobular Qualified Code(s): J43.2 - Centrilobular emphysema Is this a current diagnosis for this admission?: Yes (3) Acute on chronic diastolic heart failure Is this a current diagnosis for this admission?: Yes (4) CKD (chronic kidney disease) Qualifiers: Chronic kidney disease stage: stage 3 (moderate) Chronic kidney disease stage 3 subtype: stage 3b (GFR 30-44) Qualified Code(s): N18.32 - Chronic kidney disease, stage 3b Is this a current diagnosis for this admission?: Yes (5) Person under investigation for COVID-19 Is this a current diagnosis for this admission?: Yes (6) Pneumonia Qualifiers: Pneumonia type: due to unspecified organism Laterality: left Lung locat ion: lower lobe of lung Qualified Code(s): J18.9 - Pneumonia, unspecified organism Is this a current diagnosis for this admission?: Yes (7) Eczema Qualifiers: Eczema type: other Qualified Code(s): L30.8 - Other specified dermatitis Is this a current diagnosis for this admission?: Yes (8) Acute respiratory failure with hypoxia Is this a current diagnosis for this admission?: Yes - Plan Summary Summary: He has emphysema on his chest CT. BNP was elevated. He had a small right pleural effusion and a little bit of ankle edema. He was given 1 dose of Lasix in the ER. I cannot say for certain that he has heart failure, but I suspect he may have pulmonary hypertension, which could cause this constellation of findings. We will get an echocardiogram. We will continue 2 L of oxygen we will try to arrange for him to have [facility] facility. Once his COPD medications are reconciled we will continue those. We will continue his Lipitor. Once we get the echocardiogram results we can determine what needs to be due next and he can likely be discharged back to the jail facility (1) Dyspnea Qualifiers: Dyspnea type: shortness of breath Qualified Code(s): R06.02 - Shortness of breath; R06.00 - Dyspnea, unspecified; R06.01 - Orthopnea Is this a current diagnosis for this admission?: Yes Plan: 09/29/[id number]-yjvm-old male with history of COPD admitted with shortness of breath. Chest x-ray suggestive of small right pleural effusion and questionable pulmonary edema. Pulse ox is 92% 4 L this morning. Comfortably in the bed communicating well. BNP is 12,000. Elevated BNP may be secondary to CKD. Echocardiogram report is pending at this time. 09/30/2020-patient complained of severe shortness of breath this morning. Placed on nonrebreather. BNP is elevated.CT chest without contrast was requested. 10/01/2020-acute hypoxic respiratory failure most likely secondary to COPD e xacerbation, left-sided pneumonia. Started on IV Zosyn and vancomycin. To continue oxygen supplementations and patient is on DuoNeb nebulizations. 10/02/2020-patient is still on [address] scan shows emphysema, possible left lower pneumonia. To continue IV vancomycin and Zosyn at this ti me. Blood cultures are pending. 10/03/20-patient admitted with acute on chronic hypoxic respiratory failure with hypercapnia. Presently on 11 L of oxygen. He is a DNR/DNI. Chest x-ray indicative of emphysema, left-sided pneumonia. Plan is to continue oxygen supplementation and IV antibiotic therapy. To continue IV vancomycin, Zosyn at this time. 10/04/20-patient admitted with acute hypoxic respiratory failure. Oxygen requirements are improving. Chest x-ray suggestive of emphysema, left-sided pneumonia. To continue IV vancomycin and Zosyn at this time. Blood cultures are negative so far. (2) Eczema Qualifiers: Eczema type: other Qualified Code(s): L30.8 - Other specified dermatitis Is this a current diagnosis for this admission?: No (3) Emphysema of lung Qualifiers: Emphysema type: centrilobular Qualified Code(s): J43.2 - Centrilobular emphysema Is this a current diagnosis for this admission?: No (4) Person under investigation for COVID-19 Is this a current diagnosis for this admission?: Yes Plan: 09/29/2020-Covid test is negative. (5) CKD (chronic kidney disease) Is this a current diagnosis for this admission?: No Plan: 09/29/2020-patient has history of chronic kidney disease. On admission serum creatinine is 1.6, creatinine this morning is 1.98. Patient has a stage III kidney disease. 10/02/2020-serum creatinine today is 2.08. Stable.10/04/2020-serum creatinine today is 2.2. Stable. (6) CHF (congestive heart failure) Is this a current diagnosis for this admission?: No Plan: 09/30/2020-EF is 50 to 55%, with grade 2/3 diastolic heart failure. To start on Lasix 20 mg p.o. twice daily. 10/04/2020-blood pressure today is 167/71. Euvolemic. Pulse ox is 95% on 4 L. Plan is to continue the present management at this time. (7) Pneumonia Is this a current diagnosis for this admission?: Yes Plan: 10/01/2020-CT scan of the chest indicated of left-sided pneumonia. Started on vancomycin and Zosyn. There is a possibility of healthcare associated pneumonia. Patient lives in assisted living. To continue nonrebreather treatment. 10/03/2020-patient is on 11 L of oxygen this morning. CODE STATUS is DNR/DNI. Plan is to continue IV antibiotic therapy at this time. Blood cultures are negative so far. 10/04/2020-this morning he is on 4 L of oxygen via nasal cannula. Comfortably in the bed communicating well. Chest bilateral dose decreased no wheezing no crepitations present. Plan is to continue the antibiotic therapy at this time. 10/05/2020 Sleepy this morning. But awakens with persistent verbal stimulus Pneumonia-left side. Continue antibiotics. Probable community-acquired versus acquired at assisted living. Emphysema-continue inhaler therapies and systemic steroids Acute on chronic diastolic heart failure-we will likely decrease furosemide to once daily dosing Chronic kidney disease-slight improvement at this time. Recheck labs in the morning. Eczema-continue topical steroids The patient is not on oxygen therapy at home. We will continue to taper oxygen to room air as tolerated. Unfortunately no ABG was drawn and so his respiratory failure definitely is with hypoxia but hypercapnia cannot be proven or disproven. - Time Time Spent with patient: 15-24 minutes Medications reviewed and adjusted accordingly: Yes Anticipated Discharge Disposition: Assisted Living with Home Health Services Anticipated Discharge Timeframe: within 72 hours
[2020-10-05] MEDS: ATORVASTATIN CALCIUM 40 MG TABLET PO SCH (21:30)
[2020-10-06] MEDS: PIPERACILLIN SODIUM/TAZOBACTAM 3.375 GM in NORMAL SALINE 100 ML IV SCH ×3 (02:11→18:34)
[2020-10-06] MEDS: HYDRALAZINE HCL 50 MG TABLET PO SCH ×3 (06:18→21:12)
[2020-10-06] MEDS: HEPARIN SOD (PORCINE) 5,000 UNIT/ML 1 ML VIAL SUBCUT SCH ×3 (06:20→21:12)
[2020-10-06 07:10] LABS: HEMATOCRIT 32.9 % (37.9-51.0); HEMOGLOBIN 11.3 g/dL (13.5-17.0); MEAN CORPUSCULAR HEMOGLOBIN 32.1 pg (27.0-33.4); MEAN CORPUSCULAR HGB CONC 34.2 g/dL (32.0-36.0); MEAN CORPUSCULAR VOLUME 94 fl (80-97); PLATELET COUNT 267 10^3/uL (150-450); RED BLOOD COUNT 3.51 10^6/uL (4.35-5.55); RED CELL DISTRIBUTION WIDTH 14.3 % (11.5-14.0); WHITE BLOOD COUNT 9.9 10^3/uL (4.0-10.5)
[2020-10-06 07:32] LABS: ALBUMIN 3.7 g/dL (3.5-5.0); ANION GAP 10 (5-19); BLOOD UREA NITROGEN 55 mg/dL (7-20); CALCIUM 9.5 mg/dL (8.4-10.2); CARBON DIOXIDE 29 mmol/L (22-30); CHLORIDE 98 mmol/L (98-107); GLUCOSE 123 mg/dL (75-110); PHOSPHORUS 4.4 mg/dL (2.5-4.5); POTASSIUM 4.3 mmol/L (3.6-5.0)
[2020-10-06] MEDS: FLUTICASONE NASAL SPRAY 50 MCG/SPRY 120 SPRAY/16 GM NASL SCH ×2 (09:58→21:12)
[2020-10-06] MEDS: TRIAMCINOLONE ACETONIDE 0.1% CREAM 15 GM TOP SCH ×3 (09:58→18:15)
[2020-10-06] MEDS: FLUTICASONE/VILANTEROL 100-25 MCG/DOSE IH SCH (09:58)
[2020-10-06] MEDS: AMLODIPINE BESYLATE 10 MG TABLET PO SCH (09:59)
[2020-10-06] MEDS: ASPIRIN 81 MG TABLET, ENT COATED PO SCH (09:59)
[2020-10-06] MEDS: FUROSEMIDE 20 MG TABLET PO SCH ×2 (09:59→18:34)
[2020-10-06] MEDS ORDERED: METHYLPREDNISOLONE INJ 40 MG/1 ML SDV IV SCH (10:00)
[2020-10-06] MEDS: UMECLIDINIUM BROMIDE 62.5 MCG/DOSE IH SCH (12:50)
[2020-10-06] MEDS: VANCOMYCIN HCL 750 MG in DEXTROSE 5%-WATER 250 ML IV SCH (12:51)
--- NOTE | 2020-10-06 14:33 | PDOC PROGRESS REPORT ---
Subjective Date:: 10/06/20 Subjective:: Resting comfortably today. Awakens easily. Engages in conversation. Reason For Visit: DYSPNEA,HYPOXIA Physical Exam Vital Signs: Temp Pulse Resp BP Pulse Ox 97.5 F 81 17 141/65 H 99 10/06/20 10:00 10/06/20 11:11 10/06/20 11:11 10/06/20 11:11 10/06/20 07:31 Intake & Output 10/05/20 10/06/20 10/07/20 06:59 06:59 06:59 Intake Total 1450 1370 260 Output Total 1620 1425 400 Balance -170 -55 -140 Weight 60.2 kg 60.2 kg General appearance: PRESENT: no acute distress, cooperative, well-developed Head exam: PRESENT: atraumatic, normocephalic Ear exam: PRESENT: normal external ear exam. ABSENT: bleeding, drainage Respiratory exam: PRESENT: clear to auscultation jessie, symmetrical, unlabored. ABSENT: rales, rhonchi, tachypnea, wheezes Cardiovascular exam: PRESENT: RRR, +S1, +S2. ABSENT: bradycardia, diastolic murmur, irregular rhythm, systolic murmur, tachycardia GI/Abdominal exam: PRESENT: normal bowel sounds, soft. ABSENT: distended, tenderness Rectal exam: PRESENT: deferred Gentrourinary exam: ABSENT: indwelling catheter Extremities exam: ABSENT: pedal edema Neurological exam: PRESENT: alert, awake, oriented to person, oriented to place, oriented to situation Psychiatric exam: PRESENT: appropriate affect. ABSENT: agitated, anxious Focused psych exam: ABSENT: delusional, paranoid, restlessness Results Laboratory Results: 10/06/20 06:11 10/06/20 06:11 10/06/20 10/06/20 06:11 06:11 WBC 9.9 RBC 3.51 L Hgb 11.3 L Hct 32.9 L MCV 94 MCH 32.1 MCHC 34.2 RDW 14.3 H Plt Count 267 Sodium 137.0 Potassium 4.3 Chloride 98 Carbon Dioxide 29 Anion Gap 10 BUN 55 H Creatinine 2.29 H Est GFR ( Amer) 35 L Glucose 123 H Calcium 9.5 Phosphorus 4.4 Magnesium 2.3 Albumin 3.7 09/28/20 09/28/20 09/29/20 12:55 12:55 06:12 Creatine Kinase 247 H CK-MB (CK-2) 5.99 H Troponin I 0.069 NT-Pro-B Natriuret Pep 9120 H 48427 H Impressions: Chest X-Ray 09/28/20 13:16 IMPRESSION: Small pleural effusions. Chest CT 09/30/20 00:00 IMPRESSION: Increasing airspace disease in the left lower lobe and to lesser degree the left upper lobe suspicious for pneumonia. Unchanged pleural effusions without evidence of loculation. Assessment and Plan - Diagnosis (1) Dyspnea Qualifiers: Dyspnea type: shortness of breath Qualified Code(s): R06.02 - Shortness of breath; R06.00 - Dyspnea, unspecified; R06.01 - Orthopnea Is this a current diagnosis for this admission?: Yes (2) Emphysema of lung Qualifiers: Emphysema type: centrilobular Qualified Code(s): J43.2 - Centrilobular emphysema Is this a current diagnosis for this admission?: Yes (3) Acute on chronic diastolic heart failure Is this a current diagnosis for this admission?: Yes (4) CKD (chronic kidney disease) Qualifiers: Chronic kidney disease stage: stage 3 (moderate) Chronic kidney disease sta ge 3 subtype: stage 3b (GFR 30-44) Qualified Code(s): N18.32 - Chronic kidney disease, stage 3b Is this a current diagnosis for this admission?: Yes (5) Person under investigation for COVID-19 Is this a current diagnosis for this admission?: Yes (6) Pneumonia Qualifiers: Pneumonia type: due to unspecified organism Laterality: left Lung location: lower lobe of lung Qualified Code(s): J18.9 - Pneumonia, unspecified organism Is this a current diagnosis for this admission?: Yes (7) Eczema Qualifiers: Eczema type: other Qualified Code(s): L30.8 - Other specified dermatitis Is this a current diagnosis for this admission?: Yes (8) Acute respiratory failure with hypoxia Is this a current diagnosis for this admission?: Yes - Plan Summary Summary: He has emphysema on his chest CT. BNP was elevated. He had a small right pleural effusion and a little bit of ankle edema. He was given 1 dose of Lasix in the ER. I cannot say for certain that he has heart failure, but I suspect he may have pulmonary hypertension, which could cause this constellation of findings. We will get an echocardiogram. We will continue 2 L of oxygen we will try to arrange for him to have [facility]. Once his COPD medications are reconciled we will continue those. We will continue his Lipitor. Once we get the echocardiogram results we can determine what needs to be due next and he can likely be discharged back to the [facility] (1) Dyspnea Qualifiers: Dyspnea type: shortness of breath Qualified Code(s): R06.02 - Shortness of breath; R06.00 - Dyspnea, unspecified; R06.01 - Orthopnea Is this a current diagnosis for this admission?: Yes Plan: [id number]/29/[id number]-old male with history of COPD admitted with shortness of breath. Chest x-ray suggestive of small right pleural effusion and questionable pulmonary edema. Pulse ox is 92% 4 L this morning. Comfortably in the bed communicating well. BNP is 12,000. Elevated BNP may be secondary to CKD. Echocardiogram report is pending at this time. 09/30/2020-patient complained of severe shortness of breath this morning. Placed on nonrebreather. BNP is elevated.CT chest without contrast was requested. 10/01/2020-acute hypoxic respiratory failure most likely secondary to COPD exacerbation, left-sided pneumonia. Started on IV Zosyn and vancomycin. To continue oxygen supplementations and patient is on DuoNeb nebulizations. 10/02/2020-patient is still on [address] scan shows emphysema, possible left lower pneumonia. To continue IV vancomycin and Zosyn at this time. Blood cultures are pending. 10/03/20-patient admitted with acute on chronic hypoxic respiratory failure with hypercapnia. Presently on 11 L of oxygen. He is a DNR/DNI. Chest x-ray indicative of emphysema, left-sided pneumonia. Plan is to continue oxygen supplementation and IV antibiotic therapy. To continue IV vancomycin, Zosyn at this time. 10/04/20-patient admitted with acute hypoxic respiratory failure. Oxygen requirements are improving. Chest x-ray suggestive of emphysema, left-sided pneumonia. To continue IV vancomycin and Zosyn at this time. Blood cultures are negative so far. (2) Eczema Qualifiers: Eczema type: other Qualified Code(s): L30.8 - Other specified dermatitis Is this a current diagnosis for this admission?: No (3) Emphysema of lung Qualifiers: Emphysema type: centrilobular Qualified Code(s): J43.2 - Centrilobular emphysema Is this a current diagnosis for this admission?: No (4) Person under investigation for COVID-19 Is this a current diagnosis for this admission?: Yes Plan: 09/29/2020-Covid test is negative. (5) CKD (chronic kidney disease) Is this a current diagnosis for this admission?: No Plan: 09/29/2020-patient has history of chronic kidney disease. On admission serum creatinine is 1.6, creatinine this morning is 1.98. Patient has a stage III kidney disease. 10/02/2020-serum creatinine today is 2.08. Stable.10/04/2020-serum creatinine today is 2.2. Stable. (6) CHF (congestive heart failure) Is this a current diagnosis for this admission?: No Plan: 09/30/2020-EF is 50 to 55%, with grade 2/3 diastolic heart failure. To start on Lasix 20 mg p.o. twice daily. 10/04/2020-blood pressure today is 167/71. Euvolemic. Pulse ox is 95% on 4 L. Plan is to continue the present management at this time. (7) Pneumonia Is this a current diagnosis for this admission?: Yes Plan: 10/01/2020-CT scan of the chest indicated of left-sided pneumonia. Started on vancomycin and Zosyn. There is a possibility of healthcare associated pneum onia. Patient lives in assisted living. To continue nonrebreather treatment. 10/03/2020-patient is on 11 L of oxygen this morning. CODE STATUS is DNR/DNI. Plan is to continue IV antibiotic therapy at this time. Blood cultures are negative so far. 10/04/2020-this morning he is on 4 L of oxygen via nasal cannula. Comfortably in the bed communicating well. Chest bilateral dose decreased no wheezing no crepitations present. Plan is to continue the antibiotic therapy at this time. 10/05/2020 Sleepy this morning. But awakens with persistent verbal stimulus Pneumonia-left side. Continue antibiotics. Probable community-acquired versus acquired at assisted living. Emphysema-continue inhaler therapies and systemic steroids Acute on chronic diastolic heart failure-we will likely decrease furosemide to once daily dosing Chronic kidney disease-slight improvement at this time. Recheck labs in the morning. Eczema-continue topical steroids The patient is not on oxygen therapy at home. We will continue to taper oxygen to room air as tolerated. Unfortunately no ABG was drawn and so his respiratory failure definitely is with hypoxia but hypercapnia cannot be proven or disproven. 10/06/2020 Awakens more easily this morning. Appears to be in good spirits. Remains on oxygen therapy. This is going to be his baseline. He will most likely require 2 L nasal cannula for the foreseeable future. Pneumonia-complete antibiotic therapy Emphysema-continue inhalers. Will change to oral bruit and wean steroids. Acute on chronic diastolic heart failure-decrease furosemide to 20 mg once daily and monitor intake and output as well as respiratory status. Chronic kidney failure-renal function continues to slowly improve. He did have a slight increase in his creatinine but we are decreasing the furosemide. Eczema-continue topical steroids Anticipate discharge within 24 hours - Time Time Spent with patient: Less than 15 minutes Medications reviewed and adjusted accordingly: Yes Anticipated Discharge Disposition: Assisted Living with Home Health Services Anticipated Discharge Timeframe: within 24 hours
[2020-10-06] MEDS: ATORVASTATIN CALCIUM 40 MG TABLET PO SCH (21:12)
[2020-10-07] MEDS: PIPERACILLIN SODIUM/TAZOBACTAM 3.375 GM in NORMAL SALINE 100 ML IV SCH ×2 (02:40→11:12)
[2020-10-07] MEDS: HEPARIN SOD (PORCINE) 5,000 UNIT/ML 1 ML VIAL SUBCUT SCH ×2 (05:23→14:44)
[2020-10-07] MEDS: HYDRALAZINE HCL 50 MG TABLET PO SCH ×2 (05:23→14:43)
[2020-10-07] MEDS ORDERED: FUROSEMIDE 20 MG TABLET PO SCH (10:00)
[2020-10-07] MEDS ORDERED: PREDNISONE 20 MG TABLET PO SCH (10:00)
[2020-10-07] MEDS: TRIAMCINOLONE ACETONIDE 0.1% CREAM 15 GM TOP SCH (10:54)
[2020-10-07] MEDS: FLUTICASONE NASAL SPRAY 50 MCG/SPRY 120 SPRAY/16 GM NASL SCH (11:12)
[2020-10-07] MEDS: UMECLIDINIUM BROMIDE 62.5 MCG/DOSE IH SCH (11:13)
[2020-10-07] MEDS: AMLODIPINE BESYLATE 10 MG TABLET PO SCH (11:13)
[2020-10-07] MEDS: FLUTICASONE/VILANTEROL 100-25 MCG/DOSE IH SCH (11:13)
[2020-10-07] MEDS: ASPIRIN 81 MG TABLET, ENT COATED PO SCH (11:13)
--- NOTE | 2020-10-07 11:36 | PDOC DISCHARGE SUMMARY ---
Impression - Admit/DC Date/PCP Admission Date/Primary Care Provider: 09/28/20 17:59 Discharge Date: 10/07/20 - Discharge Diagnosis (1) Dyspnea Is this a current diagnosis for this admission?: Yes (2) Emphysema of lung Is this a current diagnosis for this admission?: Yes (3) Acute on chronic diastolic heart failure Is this a current diagnosis for this admission?: Yes (4) CKD (chronic kidney disease) Is this a current diagnosis for this admission?: Yes (5) Person under investigation for COVID-19 Is this a current diagnosis for this admission?: Yes (6) Pneumonia Is this a current diagnosis for this admission?: Yes (7) Eczema Is this a current diagnosis for this admission?: Yes (8) Acute respiratory failure with hypoxia Is this a current diagnosis for this admission?: Yes - Assessment Summary: He has emphysema on his chest CT. BNP was elevated. He had a small right pleural effusion and a little bit of ankle edema. He was given 1 dose of Lasix in the ER. I cannot say for certain that he has heart failure, but I suspect he may have pulmonary hypertension, which could cause this constellation of findings. We will get an echocardiogram. We will continue 2 L of oxygen we will try to arrange for him to have this at the correction facility. Once his COPD medications are reconciled we will continue those. We will continue his Lipitor. Once we get the echocardiogram results we can determine what needs to be due next and he can likely be discharged back to the correction facility (1) Dyspnea Qualifiers: Dyspnea type: shortness of breath Qualified Code(s): R06.02 - Shortness of breath; R06.00 - Dyspnea, unspecified; R06.01 - Orthopnea Is this a current diagnosis for this admission?: Yes Plan: 09/29/[id number]-[id number]-old male with history of COPD admitted with shortness of breath. Chest x-ray suggestive of small right pleural effusion and questionable pulmonary edema. Pulse ox is 92% 4 L this morning. Comfortably in the bed communicating well. BNP is 12,000. Elevated BNP may be secondary to CKD. Echocardiogram report is pending at this time. 09/30/2020-patient complained of severe shortness of breath this morning. Placed on nonrebreather. BNP is elevated.CT chest without contrast was requested. 10/01/2020-acute hypoxic respiratory failure most likely secondary to COPD exacerbation, left-sided pneumonia. Started on IV Zosyn and vancomycin. To continue oxygen supplementations and patient is on DuoNeb nebulizations. 10/02/2020-patient is still on [address] scan shows emphysema, possible left lower pneumonia. To continue IV vancomycin and Zosyn at this time. Blood cultures are pending. 10/03/20-patient admitted with acute on chronic hypoxic respiratory failure with hypercapnia. Presently on 11 L of oxygen. He is a DNR/DNI. Chest x-ray indicative of emphysema, left-sided pneumonia. Plan is to continue oxygen supplementation and IV antibiotic therapy. To continue IV vancomycin, Zosyn at this time. 10/04/20-patient admitted with acute hypoxic respiratory failure. Oxygen requirements are improving. Chest x-ray suggestive of emphysema, left-sided pneumonia. To continue IV vancomycin and Zosyn at this time. Blood cultures are negative so far. (2) Eczema Qualifiers: Eczema type: other Qualified Code(s): L30.8 - Other specified dermatitis Is this a current diagnosis for this admission?: No (3) Emphysema of lung Qualifiers: Emphysema type: centrilobular Qualified Code(s): J43.2 - Centrilobular emphysema Is this a current diagnosis for this admission?: No (4) Person under investigation for COVID-19 Is this a current diagnosis for this admission?: Yes Plan: 09/29/2020-Covid test is negative. (5) CKD (chronic kidney disease) Is this a current diagnosis for this admission?: No Plan: 09/29/2020-patient has history of chronic kidney disease. On admission serum creatinine is 1.6, creatinine this morning is 1.98. Patient has a stage III kidney disease. 10/02/2020-serum creatinine today is 2.08. Stable.10/04/2020-serum creatinine today is 2.2. Stable. (6) CHF (congestive heart failure) Is this a current diagnosis for this admission?: No Plan: 09/30/2020-EF is 50 to 55%, with grade 2/3 diastolic heart failure. To start on Lasix 20 mg p.o. twice daily. 10/04/2020-blood pressure today is 167/71. Euvolemic. Pulse ox is 95% on 4 L. Plan is to continue the present management at this time. (7) Pneumonia Is this a current diagnosis for this admission?: Yes Plan: 10/01/2020-CT scan of the chest indicated of left-sided pneumonia. Started on vancomycin and Zosyn. There is a possibility of healthcare associated pneumonia. Patient lives in assisted living. To continue nonrebreather maribel atment. 10/03/2020-patient is on 11 L of oxygen this morning. CODE STATUS is DNR/DNI. Plan is to continue IV antibiotic therapy at this time. Blood cultures are negative so far. 10/04/2020-this morning he is on 4 L of oxygen via nasal cannula. Comfortably in the bed communicating well. Chest bilateral dose decreased no wheezing no crepitations present. Plan is to continue the antibiotic therapy at this time. 10/05/2020 Sleepy this morning. But awakens with persistent verbal stimulus Pneumonia-left side. Continue antibiotics. Probable community-acquired versus acquired at assisted living. Emphysema-continue inhaler therapies and systemic steroids Acute on chronic diastolic heart failure-we will likely decrease furosemide to once daily dosing Chronic kidney disease-slight improvement at this time. Recheck labs in the morning. Eczema-continue topical steroids The patient is not on oxygen therapy at home. We will continue to taper oxygen to room air as tolerated. Unfortunately no ABG was drawn and so his respiratory failure definitely is with hypoxia but hypercapnia cannot be proven or disproven. 10/06/2020 Awakens more easily this morning. Appears to be in good spirits. Remains on oxygen therapy. This is going to be his baseline. He will most likely require 2 L nasal cannula for the foreseeable future. Pneumonia-complete antibiotic therapy Emphysema-continue inhalers. Will change to oral bruit and wean steroids. Acute on chronic diastolic heart failure-decrease furosemide to 20 mg once daily and monitor intake and output as well as respiratory status. Chronic kidney failure-renal function continues to slowly improve. He did have a slight increase in his creatinine but we are decreasing the furosemide. Eczema-continue topical steroids Anticipate discharge within 24 hours 10/07/2020 Stable for transfer to assisted living with home health. Continue amlodipine and furosemide. Complete antibiotic therapy and prednisone taper. - Additional Information Resuscitation Status: Do Not Resuscitate Discharge Diet: Cardiac Discharge Activity: Activity As Tolerated, Slowly Increase Activity Referrals: [facility] [Outside] Prescriptions: Furosemide [Lasix 20 mg Tablet] 20 mg PO DAILY 30 Days #30 tablet Amlodipine Besylate [Norvasc 10 mg Tablet] 10 mg PO DAILY 30 Days #30 tablet Prednisone 10 mg PO ASDIR #1 tab.ds.pk Doxycycline Hyclate [Vibramycin 100 mg Tablet] 100 mg PO BID #20 tablet Home Medications: Aspirin [Aspir-Low] 81 mg PO DAILY 09/28/20 Atorvastatin Calcium [Lipitor 40 mg Tablet] 40 mg PO QHS 09/28/20 Budesonide/Formoterol Fumarate [Symbicort HFA 80-4.5 mcg Inhaler 6.9 gm] 80 mcg IH Q12 09/28/20 Hydralazine HCl 100 mg PO TID 09/28/20 Tiotropium [place] [Spiriva Handihaler 5 Cap/Kit (18 Mcg/Cap)] 1 cap IH DAILY 09/28/20 Amlodipine Besylate [Norvasc 10 mg Tablet] 10 mg PO DAILY 30 Days #30 tablet 10/07/20 Doxycycline Hyclate [Vibramycin 100 mg Tablet] 100 mg PO BID #20 tablet 10/07/20 Fluticasone Propionate [Flonase Nasal [place] 50 Mcg/[place] 16 gm] 1 spray NASL Q12 spray.pump 10/07/20 Furosemide [Lasix 20 mg Tablet] 20 mg PO DAILY 30 Days #30 tablet 10/07/20 Prednisone 10 mg PO ASDIR #1 tab.ds.pk 10/07/20 Triamcinolone Acetonide [Aristocort 0.1% Cream] 1 applic TOP BID tube 10/07/20 History of Present Illiness History of Present Illness: SAJAN BANDA is a 65 year old male who lives at the [facility] he has a history of COPD and hyperlipidemia who presents with shortness of breath. He said he has had trouble with his breathing for about a week, and today apparently when he was complaining of shortness of breath he said it did not respond to nebulizer treatments. Pulse oximetry was checked and it was 85%. EMS checked it it was 88 percent. EMS put him on 4 L and brought him to the hospital. He got another nebulizer treatment and said his breathing was feeling better. He was hypoxic here and it was thought that he would probably need oxygen. They were unable to obtain it for him at the correction facility until tomorrow. Scan of his chest showed a small right pleural effusion with a possible small amount of pulmonary edema. He had a little bit of pitting edema at the ankles on examination. BNP was elevated. He has no prior history of any heart disease or CHF. Hospital Course Hospital Course: As above Physical Exam Vital Signs: Temp Pulse Resp BP Pulse Ox 97.7 F 71 18 117/65 94 10/07/20 09:21 10/07/20 07:57 10/07/20 07:57 10/07/20 07:57 10/07/20 07:57 Intake & Output 10/06/20 10/07/20 10/08/20 06:59 06:59 06:59 Intake Total 1370 1290 Output Total 1425 1250 Balance -55 40 Weight 60.2 kg General appearance: PRESENT: no acute distress Respiratory exam: PRESENT: rhonchi - Left base, unlabored. ABSENT: rales, symmetrical, tachypnea, wheezes Cardiovascular exam: PRESENT: RRR, +S1, +S2 GI/Abdominal exam: PRESENT: soft. ABSENT: distended, tenderness Rectal exam: PRESENT: deferred Neurological exam: PRESENT: alert, awake, oriented to person, oriented to place, oriented to time, oriented to situation. ABSENT: altered Psychiatric exam: ABSENT: agitated, anxious Results Laboratory Results: WBC 9.9 10^3/uL (4.0-10.5) 10/06/20 06:11 RBC 3.51 10^6/uL (4.35-5.55) L 10/06/20 06:11 Hgb 11.3 g/dL (13.5-17.0) L 10/06/20 06:11 Hct 32.9 % (37.9-51.0) L 10/06/20 06:11 MCV 94 fl (80-97) 10/06/20 06:11 MCH 32.1 pg (27.0-33.4) 10/06/20 06:11 MCHC 34.2 g/dL (32.0-36.0) 10/06/20 06:11 RDW 14.3 % (11.5-14.0) H 10/06/20 06:11 Plt Count 267 10^3/uL (150-450) 10/06/20 06:11 Lymph % (Auto) Not Reportable 10/04/20 04:40 Nobles % (Auto) Not Reportable 10/04/20 04:40 Eos % (Auto) Not Reportable 10/04/20 04:40 Baso % (Auto) Not Reportable 10/04/20 04:40 Absolute Neuts (auto) Not Reportable 10/04/20 04:40 Absolute Lymphs (auto) Not Reportable 10/04/20 04:40 Absolute Monos (auto) Not Reportable 10/04/20 04:40 Absolute Eos (auto) Not Reportable 10/04/20 04:40 Absolute Basos (auto) Not Reportable 10/04/20 04:40 Total Counted 100 10/04/20 04:40 Seg Neutrophils % Not Reportable 10/04/20 04:40 Seg Neuts % (Manual) 95 % (42-78) H 10/04/20 04:40 Band Neutrophils % 1 % (3-5) L 09/28/20 12:55 Lymphocytes % (Manual) 3 % (13-45) L 10/04/20 04:40 Atypical Lymphs % 1 % (0) 09/28/20 12:55 Monocytes % (Manual) 2 % (3-13) L 10/04/20 04:40 Eosinophils % (Manual) 0 % (0-6) 10/04/20 04:40 Basophils % (Manual) 0 % (0-2) 10/04/20 04:40 Abs Neuts (Manual) 11.4 10^3/uL (1.7-8.2) H 10/04/20 04:40 Abs Lymphs (Manual) 0.4 10^3/uL (0.5-4.7) L 10/04/20 04:40 Abs Monocytes (Manual) 0.2 10^3/uL (0.1-1.4) 10/04/20 04:40 Absolute Eos (Manual) 0.0 10^3/uL (0.0-0.6) 10/04/20 04:40 Abs Basophils (Manual) 0.0 10^3/uL (0.0-0.2) 10/04/20 04:40 Platelet Comment ADEQUATE 10/04/20 04:40 Polychromasia SLIGHT 10/04/20 04:40 Poikilocytosis SLIGHT 10/01/20 08:36 Anisocytosis SLIGHT 10/04/20 04:40 Ovalocytes SLIGHT 10/04/20 04:40 [place] Cells SLIGHT 10/04/20 04:40 Schistocytes Not Reportable 10/04/20 04:40 RBC Morph Comment NORMO-CYTIC/CHROMIC 10/04/20 04:40 Sodium 137.0 mmol/L (137-145) 10/06/20 06:11 Potassium 4.3 mmol/L (3.6-5.0) 10/06/20 06:11 Chloride 98 mmol/L (98-107) 10/06/20 06:11 Carbon Dioxide 29 mmol/L (22-30) 10/06/20 06:11 Anion Gap 10 (5-19) 10/06/20 06:11 BUN 55 mg/dL (7-20) H 10/06/20 06:11 Creatinine 2.29 mg/dL (0.52-1.25) H 10/06/20 06:11 Est GFR ( Amer) 35 (>60) L 10/06/20 06:11 Est GFR (MDRD) Non-Af 29 (>60) L 10/06/20 06:11 Glucose 123 mg/dL (75-110) H 10/06/20 06:11 Calcium 9.5 mg/dL (8.4-10.2) 10/06/20 06:11 Phosphorus 4.4 mg/dL (2.5-4.5) 10/06/20 06:11 Magnesium 2.3 mg/dL (1.6-2.3) 10/06/20 06:11 Total Bilirubin 0.5 mg/dL (0.2-1.3) 10/04/20 04:40 Direct Bilirubin 0.3 mg/dL (0.0-0.4) 10/04/20 04:40 Neonat Total Bilirubin Not Reportable 10/04/20 04:40 Neonat Direct Bilirubin Not Reportable 10/04/20 04:40 Neonat Indirect Bili Not Reportable 10/04/20 04:40 AST 32 U/L (17-59) 10/04/20 04:40 ALT 40 U/L (<50) 10/04/20 04:40 Alkaline Phosphatase 96 U/L (38-126) 10/04/20 04:40 Creatine Kinase 247 U/L (55-170) H 09/28/20 12:55 CK-MB (CK-2) 5.99 ng/mL (<4.55) H 09/28/20 12:55 Troponin I 0.069 ng/mL 09/28/20 12:55 NT-Pro-B Natriuret Pep 63623 pg/mL (<125) H 09/29/20 06:12 Total Protein 6.0 g/dL (6.3-8.2) L 10/04/20 04:40 Albumin 3.7 g/dL (3.5-5.0) 10/06/20 06:11 Urine Color YELLOW 09/28/20 16:38 Urine Appearance CLEAR 09/28/20 16:38 Urine pH 5.0 (5.0-9.0) 09/28/20 16:38 Ur Specific Ker[place] 1.013 09/28/20 16:38 Urine Protein NEGATIVE mg/dL (NEGATIVE) 09/28/20 16:38 Urine Glucose (UA) NEGATIVE mg/dL (NEGATIVE) 09/28/20 16:38 Urine Ketones NEGATIVE mg/dL (NEGATIVE) 09/28/20 16:38 Urine Blood NEGATIVE (NEGATIVE) 09/28/20 16:38 Urine Nitrite NEGATIVE (NEGATIVE) 09/28/20 16:38 Urine Bilirubin NEGATIVE (NEGATIVE) 09/28/20 16:38 Urine Urobilinogen NEGATIVE mg/dL (<2.0) 09/28/20 16:38 Ur Leukocyte Esterase TRACE (NEGATIVE) H 09/28/20 16:38 Urine WBC (Auto) 3 /HPF 09/28/20 16:38 Urine RBC (Auto) 8 /HPF 09/28/20 16:38 Urine Bacteria (Auto) 3+ /HPF 09/28/20 16:38 Urine Mucus (Auto) RARE /LPF 09/28/20 16:38 Urine Ascorbic Acid NEGATIVE (NEGATIVE) 09/28/20 16:38 Luis E Human Metapneumo PCR NOT DETECTED (NOT DETECT) 09/28/20 15:07 Time Trough Drawn 1140 10/04/20 11:40 Vancomycin Trough 16.3 ug/mL (5.0-20.0) 10/04/20 11:40 Adenovirus (PCR) NOT DETECTED (NOT DETECT) 09/28/20 15:07 B. pertussis DNA (PCR) NOT DETECTED (NOT DETECT) 09/28/20 15:07 B.parapertussis DNA PCR NOT DETECTED (NOT DETECT) 09/28/20 15:07 C. pneumoniae DNA (PCR) NOT DETECTED (NOT DETECT) 09/28/20 15:07 Coronavirus OC43 (PCR) NOT DETECTED (NOT DETECT) 09/28/20 15:07 Coronavirus HKU1 (PCR) NOT DETECTED (NOT DETECT) 09/28/20 15:07 Coronavirus 229E (PCR) NOT DETECTED (NOT DETECT) 09/28/20 15:07 Coronavirus NL63 (PCR) NOT DETECTED (NOT DETECT) 09/28/20 15:07 Influenza A (RT-PCR) NEGATIVE (NEGATIVE) 10/05/20 12:30 Influenza A (H1) PCR NOT DETECTED (NOT DETECT) 09/28/20 15:07 Influ A (H1N1/09) PCR NOT DETECTED (NOT DETECT) 09/28/20 15:07 Influenza A (H3) PCR NOT DETECTED (NOT DETECT) 09/28/20 15:07 Influenza Type A (PCR) NOT DETECTED (NOT DETECT) 09/28/20 15:07 Influenza B (RT-PCR) NEGATIVE (NEGATIVE) 10/05/20 12:30 Influenza Type B (PCR) NOT DETECTED (NOT DETECT) 09/28/20 15:07 M. pneumoniae (PCR) NOT DETECTED (NOT DETECT) 09/28/20 15:07 Parainfluenza 1 (PCR) NOT DETECTED (NOT DETECT) 09/28/20 15:07 Parainfluenza 2 (PCR) NOT DETECTED (NOT DETECT) 09/28/20 15:07 Parainfluenza 3 (PCR) NOT DETECTED (NOT DETECT) 09/28/20 15:07 Parainfluenza 4 (PCR) NOT DETECTED (NOT DETECT) 09/28/20 15:07 RSV (RT-PCR) NEGATIVE (NEGATIVE) 10/05/20 12:30 RSV (PCR) NOT DETECTED (NOT DETECT) 09/28/20 15:07 Entero/Rhino (PCR) NOT DETECTED (NOT DETECT) 09/28/20 15:07 SARS-CoV-2 (PCR) NOT DETECTED (NOT DETECT) 09/28/20 15:07 SARS-CoV-2 Rap RNA(RT-PCR) NEGATIVE (NEGATIVE) 10/05/20 12:30 12/15/20 12/16/20 12:55 06:12 CK-MB (CK-2) 5.99 H Troponin I 0.069 NT-Pro-B Natriuret Pep 9120 H 15985 H Impressions: Chest X-Ray 09/28/20 13:16 IMPRESSION: Small pleural effusions. Chest CT 09/28/20 14:26 IMPRESSION: 1. Centrilobular emphysema. 2. Bilateral pleural effusions with associated atelectatic changes as described. 3. Calcified granuloma with calcified mediastinal and hilar lymph nodes. 4. Atherosclerosis, abdominal aortic aneurysms, and associated changes in the abdomen as described. Chest CT 09/30/20 00:00 IMPRESSION: Increasing airspace disease in the left lower lobe and to lesser degree the left upper lobe suspicious for pneumonia. Unchanged pleural effusions without evidence of loculation. Plan Health Concerns: Patient with diastolic heart failure and COPD with acute pneumonia Plan of Treatment: Add amlodipine and furosemide to his regimen. Complete antibiotic therapy and prednisone taper. Goals: Return to baseline. Time Spent: Greater than 30 Minutes Stroke Is this a Stroke Patient?: No Acute Heart Failure Is this a Heart Failure Patient?: Yes Documentation of LVEF assessment?: Yes LVEF: LVEF Greater Than 40% Anticoagulant Therapy: N/A Discharged on Evidence-Based Beta Blockers: No, document contraindications Reason(s) not discharged on Evidence-Based Beta Blockers: Other Beta Jarrod Reason - Other: COPD Discharged on ARNI?: No-Document Contraindications Reason(s) not discharged on ARNI: NYHA Class I or IV Discharged on ARB?: No-document contraindications Reason(s) not Discharged on ARB: Other ARB Reason - Other: Kidney failure Discharged on ACEI?: No, document contraindications Reason(s) not Discharged on ACEI: other ACEI Reason - Other: Kidney failure For LVEF <35%, discharged on Aldosterone Antagonist?: N/A (LVEF > or = 35%) Follow-up Appointment scheduled within 7 days?: Yes
[2020-10-07] MEDS: VANCOMYCIN HCL 750 MG in DEXTROSE 5%-WATER 250 ML IV SCH (12:40)
[2020-10-07 15:01] VITALS: BP 96/59
== END 2020-10-07 15:14 | DRG 193 ==
LOC: ER 12:48 → EH 17:59 → 4S 23:33
PROVIDERS: ADMIT Family Medicine; ATTEND Hospitalist
DX: J18.9 Pneumonia, unspecified organism (principal); I50.33 Acute on chronic diastolic (congestive) heart failure; J96.21 Acute and chronic respiratory failure with hypoxia; J96.22 Acute and chronic respiratory failure with hypercapnia; J43.2 Centrilobular emphysema; N18.32 Chronic kidney disease, stage 3b; F17.200 Nicotine dependence, unspecified, uncomplicated; Z20.828 Contact with and (suspected) exposure to other viral communicable diseases; E78.5 Hyperlipidemia, unspecified; L30.8 Other specified dermatitis; Z79.899 Other long term (current) drug therapy; Z66 Do not resuscitate; Z99.81 Dependence on supplemental oxygen; Z88.0 Allergy status to penicillin
CPT/HCPCS: 0202U; 36415; 71045; 71250; 80048; 80053; 80069; 80202; 81001; 82550; 82553; 82565; 83735; 83880; 84484; 85025; 85027; 93005; 93010; 93306; 94640; 96374; 99285; 0241U; C9803; J1644; J1940; J2543; J2920; J3370; J3490; J7050; J7060; J7512

== ENCOUNTER → 2020-11-04 | Outpatient (CLI) | payer MEDICARE, MEDICAID ==
[2020-11-04 10:43] LABS: HEMATOCRIT 35.3 % (37.9-51.0); HEMOGLOBIN 11.8 g/dL (13.5-17.0); MEAN CORPUSCULAR HEMOGLOBIN 30.2 pg (27.0-33.4); MEAN CORPUSCULAR HGB CONC 33.3 g/dL (32.0-36.0); MEAN CORPUSCULAR VOLUME 91 fl (80-97); PLATELET COUNT 419 10^3/uL (150-450); RED CELL DISTRIBUTION WIDTH 15.9 % (11.5-14.0); WHITE BLOOD COUNT 10.1 10^3/uL (4.0-10.5)
[2020-11-04 11:01] LABS: APPEARANCE,URINE CLEAR; BILIRUBIN,URINE NEGATIVE (NEGATIVE); COLOR,URINE YELLOW; GLUCOSE, URINE NEGATIVE (NEGATIVE); KETONES,URINE NEGATIVE (NEGATIVE); LEUKOCYTE ESTERASE,URINE NEGATIVE (NEGATIVE); NITRITE,URINE NEGATIVE (NEGATIVE); PROTEIN,URINE NEGATIVE (NEGATIVE); URINE SPECIFIC GRAVITY 1.013; UROBILINOGEN,URINE NEGATIVE mg/dL (<2.0)
[2020-11-04 11:08] LABS: ALKALINE PHOSPHATASE 156 U/L (38-126); ANION GAP 9 (5-19); ASPARTATE AMINO TRANSFERASE 52 U/L (17-59); BILIRUBIN,DIRECT 0.4 mg/dL (0.0-0.4); BILIRUBIN,TOTAL 0.5 mg/dL (0.2-1.3); BLOOD UREA NITROGEN 31 mg/dL (7-20); CARBON DIOXIDE 29 mmol/L (22-30); CHLORIDE 103 mmol/L (98-107); CHOLESTEROL 147.04 mg/dL (0-200); GLUCOSE 83 mg/dL (75-110); POTASSIUM 4.3 mmol/L (3.6-5.0); TOTAL PROTEIN 6.8 g/dL (6.3-8.2); TRIGLYCERIDES 85 mg/dL (<150)
[2020-11-04 11:18] LABS: DIRECT LDL 65 mg/dL (<100)
[2020-11-04 12:10] LABS: FOLATE 9.12 ng/mL (>2.76)
--- OUTSIDE RECORDS SUMMARY | 2020-11-04 14:32 | XMS REPORT ---
:1955 Author Organization [facility] Address [facility] [address] [place] [address] Care Team Providers Name Role Phone GER Attending Clinician Unavailable Noah KANG Attending Clinician Unavailable Chung MOTLEY Attending Clinician Unavailable Wendy BOWLES Attending Clinician Unavailable SAUL Attending Clinician Unavailable Wendy SAENZ Admitting Clinician Unavailable Noah KANG Admitting Clinician Unavailable Allergies, Adverse Reactions, Alerts Allergy Allergy Status Severity Reaction(s) Onset Inactive Treating C omments Name Type Date Date Clinician Penicillins Allergy to Active 2017-10 ([id number] substance 0- ) 00:00: 00 Penicillins Allergy to Inactive Unknown ([id number] Substance ) Medications Ordered Filled Start Stop Current Ordering Indication Dosage Frequency Signature Comments Components Medication Medication Date Date Medication? Clinician (SIG) Name Name Aspirin 2019-0 Yes 81 Once Per (Baby 5-18 Day Aspirin 09:26: Chew*) 81 00 Mg CHEW Atorvastati Yes 40 Qday@18 n Calcium 5-18 (Lipitor*) 09:26: 40 Mg TAB 00 Hydralazine Yes 100 Three Hcl 5-18 Times Per (Apresoline 09:26: Day Tab*) 25 Mg 00 TAB Nyasia 2017-10 2018- No 80 Once Per n Calcium 0-09-09 Day (Lipitor*) 14:51: 00:00 80 Mg 00 :00 TABLET Lisinopril 2017-10- No 20 Once Per (Zestril*) 09-09 Day 20 Mg 14:51: 00:00 TABLET 00 :00 Pantoprazol 2017-10 2018- No 40 Daily e 0-09-09 Before (Protonix*) 14:51: 00:00 Breakfast 40 Mg 00 :00 TABLET.DR Murrell 2017-10 2018- No Clifford Zamora 80 Once Per n Calcium 0-09-08 Jorge Luis Phelps Day (Lipitor*) 00:00: 00:00 80 Mg 00 :00 Tablet Lisinopril 2017-10- No Clifford T 20 Once Per (Zestril*) 09-08 Jorge Luis Phelps Day 20 Mg 00:00: 00:00 Tablet 00 :00 Pantoprazol 2017-10- No Clifford T 40 Daily e 09-08 Jorge Luis Phelps Before (Protonix*) 00:00: 00:00 Breakfast 40 Mg 00 :00 Tablet. Sulfamethox 2017- No 1 Twice Per azole/Trime 01-05 Day thoprim Tab 01:35: 00:00 (Bactrim Ds 00 :00 Tab) 800 Mg/160 Mg TAB Sulfamethox 2016- No Charles 1 Twice Per azole/Trime 01-05 Saul Phelps Day thoprim Tab 00:00: 00:00 (Bactrim Ds 00 :00 Tab) 800 Mg/160 Mg Tab, 1 Tab Oral Amlodipine No 5 Once Per Besylate Day (Norvasc*) 5 Mg Tab Aspirin No 81 Once Per (Ecotrin*) Day 81 Mg Tabec Atorvastati No 20 At Bedtime n Calcium (Lipitor*) 20 Mg Tablet Lisinopril No 10 Once Per (Zestril*) Day 10 Mg Tab Amlodipine Yes 10 Once Per Besylate Day Lisinopril Yes 40 Once Per (Zestril*) Day 40 Mg TABLET Triamcinolo Yes 1 Twice Per ne Day Apply Acetonide a small 0.1% Cream amount to (Kenalog affected 0.1% Cream) area(s) 80 Gm CREAM..G. Atorvastati 2019- No 20 Once Per n Calcium 05-18 Day (Lipitor*) 00:00 20 Mg :00 TABLET Sildenafil 2019- No 20 Three Citrate 05-18 Times Per (Sildenafil 00:00 Day as Tab*) 20 Mg :00 needed for TABLET . Aspirin 2019- No 81 Once Per (Ecotrin*) 02-03 Day 81 Mg TABEC 00:00 :00 Atorvastati 2018- No 20 At Bedtime n Calcium - (Lipitor*) 00:00 20 Mg :00 Tablet, 20 Mg Oral Lisinopril 2017- No 10 Once Per (Zestril*) 08-09 Day 10 Mg Tab, 00:00 10 Mg Oral :00 Atorvastati No 20 At Bedtime n Calcium 08-09 (Lipitor*) 00:00 20 Mg :00 TABLET Lisinopril No 10 Once Per (Zestril*) 08-09 Day 10 Mg TAB 00:00 :00 Amlodipine No 5 Once Per Besylate 08-08 Day (Norvasc*) 00:00 5 Mg Tab, 5 :00 Mg Oral Amlodipine No 5 Once Per Besylate 08-08 Day (Norvasc*) 00:00 5 Mg TAB :00 Problems Condition Condition Condition Status Onset Resolution Last Treatin g Comments Name Details Category Date Date Treatment Clinician Date COPD Problem Inactiv 2017-10 (chronic e 0-25 obstructive 10:57: pulmonary 00 disease) History of Problem Inactiv 2017-10 TIA e 0-25 (transient 10:57: ischemic 00 attack) Tobacco Problem Inactiv 2017-10 abuse e 0-25 10:57: 00 Dislocation Problem Inactiv 2017-10 of right e 0-25 shoulder 10:56: joint 00 PVD Problem Inactiv 2017-10 (peripheral e 0-25 vascular 07:56: disease) 00 Chest pain Problem Inactiv 2017-10 e 0-25 07:34: 00 Critical Critical Problem Inactiv ischemia of ischemia of e 5-16 lower lower 15:25: extremity extremity 00 Critical Problem Inactiv ischemia of e 5-16 lower 15:25: extremity 00 Critical Problem Inactiv ischemia of e 5-16 lower 15:25: extremity 00 Local Local Problem Inactiv infection infection e 3-24 of wound of wound 01:35: 00 Wound Problem Inactiv infection e 3-24 01:35: 00 Wound Problem Inactiv infection e 3-24 01:35: 00 Chest pain Chest pain Problem Active Peripheral Peripheral Problem Active vascular vascular disease disease Dislocation Dislocation Problem Active of right of right shoulder shoulder joint joint Chronic Chronic Problem Active obstructive obstructive pulmonary pulmonary disease disease Continuous Continuous Problem Active tobacco tobacco abuse abuse History of History of Problem Active transient transient ischemic ischemic attack attack Acute renal Acute renal Problem Active failure failure superimpose superimpose d on d on chronic chronic kidney kidney disease disease Hyperkalemi Hyperkalemi Problem Active a a Encounter Encounter Problem Active for deep for deep vein vein thrombosis thrombosis (DVT) (DVT) prophylaxis prophylaxis Eczema Eczema Problem Active Impaired Impaired Problem Active cognition cognition Procedures Procedure Date / Time Performed Performing Clinician Jonnathan soria ROUTINE VENIPUNCTURE 2017-02-22 00:00:00 ECTOR MOTLEY METABOLIC PANEL TOTAL CA 2017-02-22 00:00:00 ECTOR MOTLEY ASSAY OF MAGNESIUM 2017-02-22 00:00:00 ECTOR MOTLEY COMPLETE CBC AUTOMATED 2017-02-22 00:00:00 ECTOR MOTLEY Results Test Description Test Time Test Comments Text Results Atomic Results Result Comments SARS-CoV-2 RNA Resp Ql ERIC+probe 2020-02-27 00:00:00 Test Item Value Reference Range Comments SARS-CoV-2 RNA Resp Ql ERIC+probe Not detected [place] [facility] Case ID: (test code = 64795-2) [id number] Sodium [Moles/volume] in Msiyz6664-04-60 07:15:00 Test Item Value Reference Range Comments Sodium Level (test code = 2947-0) 141 137-144 Potassium [Moles/volume] in Serum or Hrpbim0775-83-10 07:15:00 Test Item Value Reference Range Comments Potassium Level (test code = 2823-3) 4.7 3.1-5.1 Chloride badeu2718-38-16 07:15:00 Test Item Value Reference Range Comments Chloride Level (test code = 752849578) 111 101-110 Carbon dioxide mcjvn4660-98-76 07:15:00 Test Item Value Reference Range Comments Carbon Dioxide Level (test code = 25372330) 22 23-3 1 Glucose [Moles/volume] in Serum or Wsrrke5079-87-16 07:15:00 Test Item Value Reference Range Comments Glucose Level (test code = 85018-1) 79 70-105 [id number] 07:15:00 Test Item Value Reference Range Comments Blood Urea Nitrogen (test code = 058656388) 50.0 8.4- 25.7 Creatinine bykbn8138-92-41 07:15:00 Test Item Value Reference Range Comments Creatinine (test code = 024912171) 2.14 0.72-1.25 Estimation of creatinine fonayykwb3180-32-77 07:15:00 Test Item Value Reference Range Comments Estimated Creatinine Clearance 29.94 P T Ht: 165.1cm, PT Wt: 61.5KG Calc (test code = 863728190) Anion gap kvhbwxdnlhg7916-07-84 07:15:00 Test Item Value Reference Range Comments Anion Gap (test code = 42440586) 13 7-16 Cbeuxui8625-83-44 07:15:00 Test Item Value Reference Range Comments Calcium Level (test code = 51821080) 9.9 8.4-10.2 Automated blood monocyte count as percentage of total ahklstevcm2976-52-71 06:14:00 Test Item Value Reference Range Comments Monocytes (%) (Auto) (test code = 5905-5) 6.5 4.6-12 .4 Automated blood eosinophil count as percentage of total sjfkpqjwaj2404-16-88 06:14:00 Test Item Value Reference Range Comments Eosinophils (%) (Auto) (test code = 713-8) 0.4 0.7-7 .8 Automated blood basophil count as percentage of total sknxvmrvwf9415-20-27 06:14:00 Test Item Value Reference Range Comments Basophils (%) (Auto) (test code = 706-2) 0.3 0.2-1.2 Blood neutrophils automated count (number/volume)2020-02-22 06:14:00 Test Item Value Reference Range Comments Neutrophils # (Auto) (test code = 751-8) 7.3 1.9-7.2 Automated blood lymphocyte count (number/volume)2020-02-22 06:14:00 Test Item Value Reference Range Comments Lymphocytes # (Auto) (test code = 731-0) 0.7 1.1-2.7 Blood monocytes automated count (number/volume)2020-02-22 06:14:00 Test Item Value Reference Range Comments Monocytes # (Auto) (test code = 742-7) 0.6 0.3-0.8 Automated blood eosinophil ouyhm8425-81-31 06:14:00 Test Item Value Reference Range Comments Eosinophils # (Auto) (test code = 711-2) 0.0 0.0-0.5 Automated blood basophil count (count/volume)2020-02-22 06:14:00 Test Item Value Reference Range Comments Basophils # (Auto) (test code = 704-7) 0.0 0.0-0.1 Magnesium xahnw9659-61-58 06:14:00 Test Item Value Reference Range Comments Magnesium Level (test code = 501250575) 2.3 1.6-2.6 Blood leukocytes automated count (number/volume)2020-02-22 06:14:00 Test Item Value Reference Range Comments White Blood Count (test code = 6690-2) 8.7 3.6-11.1 Blood erythrocytes automated count (number/volume)2020-02-22 06:14:00 Test Item Value Reference Range Comments Red Blood Count (test code = 789-8) 3.46 4.27-5.49 Blood hemoglobin measurement (mass/volume)2020-02-22 06:14:00 Test Item Value Reference Range Comments Hemoglobin (test code = 718-7) 10.9 12.9-16.1 Automated blood hematocrit (volume fraction)2020-02-22 06:14:00 Test Item Value Reference Range Comments Hematocrit (test code = 4544-3) 32.3 37.7-46.5 Automated erythrocyte mean corpuscular ynpvxv6968-71-77 06:14:00 Test Item Value Reference Range Comments Mean Corpuscular Volume (test code = 787-2) 93.2 79.3 -94.8 Automated erythrocyte mean corpuscular hemoglobin (mass per erythrocyte) 2020-02-22 06:14:00 Test Item Value Reference Range Comments Mean Corpuscular Hemoglobin (test code = 785-6) 31.6 26.8-33.2 Automated erythrocyte mean corpuscular hemoglobin concentration measurement (mass/volume)2020-02-22 06:14:00 Test Item Value Reference Range Comments Mean Corpuscular Hemoglobin Concent (test code = 33.8 33.5-35.5 786-4) Automated erythrocyte distribution width knhvd3051-49-13 06:14:00 Test Item Value Reference Range Comments Red Cell Distribution Width (test code = 788-0) 15.9 12.0-15.1 Automated blood platelet count (count/volume)2020-02-22 06:14:00 Test Item Value Reference Range Comments Platelet Count (test code = 777-3) 311 165-353 Automated blood platelet mean volume wszvmktziav1241-28-13 06:14:00 Test Item Value Reference Range Comments Mean Platelet Volume (test code = 77754-2) 7.8 7.5-1 0.6 Automated blood neutrophil count as percentage of total eayiiyjjcs9375-73-92 06:14:00 Test Item Value Reference Range Comments Neutrophils (%) (Auto) (test code = 770-8) 84.3 43.2- 71.5 Automated blood lymphocyte count as percentage of total elpyglfqkw8033-48-78 06:14:00 Test Item Value Reference Range Comments Lymphocytes (%) (Auto) (test code = 736-9) 8.5 16.8- 43.4 Hckogjq2482-03-21 05:44:00 Test Item Value Reference Range Comments Albumin (test code = DUA3204) 3.4 3.2-5.2 Plasma globulin measurement (mass/volume)2020-02-17 05:44:00 Test Item Value Reference Range Comments Globulin (test code = 21746-0) 2.7 2.6-4.6 Albumin to globulin jmhjx0542-58-73 05:44:00 Test Item Value Reference Range Comments Albumin/Globulin Ratio (test code = 692688) 1.3 1.1- 2.5 AST (SGOT) ser/ftol2219-82-38 05:44:00 Test Item Value Reference Range Comments Aspartate Amino Transf (AST/SGOT) (test code = 31 5 -34 81012802) Alkaline vxgwwbyfipt7222-40-88 05:44:00 Test Item Value Reference Range Comments Alkaline Phosphatase (test code = 97908311) 110 40-1 50 ALT (SGPT) ser/ombh3313-55-63 05:44:00 Test Item Value Reference Range Comments Alanine Aminotransferase (ALT/SGPT) (test code = 45 0-55 1742-6) Total bkwvxalng3257-62-11 05:44:00 Test Item Value Reference Range Comments Total Bilirubin (test code = JHI4159) 0.3 0.1-1.2 Total protein umgnf9969-35-40 05:44:00 Test Item Value Reference Range Comments Total Protein (test code = 2885-2) 6.1 6.0-8.3 Blood band neutrophil count as percentage of total nfatxrotvx0057-29-87 07:10:00 Test Item Value Reference Range Comments Neutrophils % (Manual) (test code = 77471-6) 80.0 43. 2-71.5 Blood lymphocytes/100 yheymngruq3250-07-68 07:10:00 Test Item Value Reference Range Comments Lymphocytes % (Manual) (test code = 28040-5) 4.0 16. 8-43.4 Blood lymphocytes variant/100 kyqnyeumpm0019-25-86 07:10:00 Test Item Value Reference Range Comments Atypical Lymphocytes % (Manual) (test code = 83756-9) 5.0 Monocyte %2020-02-11 07:10:00 Test Item Value Reference Range Comments Monocytes % (Manual) (test code = JHP9609) 3.0 4.6-1 2.4 Eosinophil %2020-02-11 07:10:00 Test Item Value Reference Range Comments Eosinophils % (Manual) (test code = FJB3250) 8.0 0.7 -7.8 Neutrophil kepqw7939-63-21 07:10:00 Test Item Value Reference Range Comments Neutrophils # (Manual) (test code = 751-8) 9.7 1.9-7 .2 Absolute lymphocyte tmhhg5254-66-81 07:10:00 Test Item Value Reference Range Comments Lymphocytes # (Manual) (test code = 70233-8) 1.1 1.1 -2.7 Absolute monocyte qxzyr9850-39-38 07:10:00 Test Item Value Reference Range Comments Monocytes # (Manual) (test code = YKP0264) 0.4 0.3-0 .8 Automated blood eosinophil mrfnp9267-29-19 07:10:00 Test Item Value Reference Range Comments Eosinophils # (Manual) (test code = 711-2) 1.0 0.0-0 .5 Automated basophil tsnuf6170-78-76 07:10:00 Test Item Value Reference Range Comments Basophils # (Manual) (test code = 704-7) 0.0 0.0-0.1 Blood platelets count by estimate (number/volume)2020-02-11 07:10:00 Test Item Value Reference Range Comments Platelet Estimate (test code = 32617-2) NORMAL NORMAL Hypochromatic red blood cell sapefitha5256-20-55 07:10:00 Test Item Value Reference Range Comments Hypochromasia (test code = 73411-9) 1+ Rouleaux umqbwnldh7572-11-12 07:10:00 Test Item Value Reference Range Comments Rouleau (test code = 7797-4) 1+ YHLRHZIWGW3405-79-19 15:29:[address] [address] [id number] Patient: SAJAN BANDA : 1955 Sex: M Address: [address] [place] [address] [place] [address] Unit #: [id number] [facility] SEQ #: [id number] Location: [facility] Room #: 3-0017-P Ordering: JOHN MARKS PA-C Diagnosis: ACUTE/CHRONIC RENAL INSUFF/HYPERKAL/DEMENTIA History: Subclavian steal. Comparison: None Findings: Real-time eddy sca le, pulsed and color Doppler ultrasound of the carotid arteries was performed. No significant atherosclerotic changes are noted in the right common carotid artery. There are heterogeneous plaques in the right carotid bulb extending into the proximal cervical right ICA where there is an elevatedpeak systolic velocity of 310 cm/s corresponding to a greater than 70% stenosis. There is intimal thickening and noncalcified plaques and/or mural thrombi along the left common carotid artery with mild narrowing of the lumen. Heterogeneous plaques are noted in the left carotid bulb and extending intothe cervical left ICA and external carotid arteries. No abnormally elevated peak systolic ve locities are demonstratedwithin the cervical left ICA although there diastolic flow reversal throughout the visualized cervical left ICA indicative of increased vascular resistance in the distal ICA. There is also a left IC/CC ratio of 3.3 with suggests a 50-69% stenosis in the proximal cervicalleft ICA. There is retrograde flow in the left vertebral artery consistent with subclavian steal. Antegrade flow is demonstrated within the right vertebral artery and in both external carotid and subclavian arteries. There is an increase in peak systolic velocity in the proximal right external carotid artery is 310cm/s consistent with a moderately severe stenosis. Peak systolic velocities: Distal right CCA: 126cm/sec Right ICA: 310cm/sec Right peak systolic IC/CC: 2.5 Distal left CCA: 25cm/sec Left ICA: 83cm/sec Left peak systolic IC/CC: 3.3 Antegrade flow is present within both external carotid, both vertebral andboth subclavian arteries. Please note that all above calculations for carotid arterial stenosisare determined based on velocity measurements that have been correlated with angiographic stenosiscalculations. In turn, these angiographic stenosiscalculations are based on distal internal carotid artery diameters. Impression: 1. Greater than 70% stenosis involving the proximal cervical right ICA. 2. Flow reversal in the left vertebral artery consistent with subclavian steal. 3. Left ICA/CCA ratio of 3.3 suggesting a 50-69% stenosis in the proximal cervical left ICA. 4. Diastolic flow reversal in the left ICA indicating increased vascular resistance in the distal ICA. Final report electronically signed by: Dennys Zuniga MD Signed by: DENNYS ZUNIGA MD02/08/20 1524 cc: JOHN MARKS PA-C, DENNIS MDColor of Urine by Lhsa0533-98-77 19:31:00 Test Item Value Reference Range Comments Urine Color (test code = 58533-4) STRAW Urine clarity by refractometry slyerajbw2380-84-99 19:31:00 Test Item Value Reference Range Comments Urine Appearance (test code = 57316-3) Clear Urine specific gravity measurement by automated test strip (relative density) 2020-02-04 19:31:00 Test Item Value Reference Range Comments Urine Specific [place] (test code = 68720-8) 1.009 1.0 05-1.030 Urine pH measurement by automated test cvayj3235-67-02 19:31:00 Test Item Value Reference Range Comments Urine pH (test code = 31422-7) 6.0 5.0-8.0 Urine leukocyte esterase detection by automated test pgzko3269-30-16 19:31:00 Test Item Value Reference Range Comments Urine Leukocyte Esterase (test code = 71217-4) NEGATIVE N EGATIVE Urine nitrite detection by automated test ovpkt3799-05-59 19:31:00 Test Item Value Reference Range Comments Urine Nitrite (test code = 93630-8) NEGATIVE NEGATIVE Urine protein detection by automated test ovmur0038-55-74 19:31:00 Test Item Value Reference Range Comments Urine Protein (test code = 57197-7) NEGATIVE NEGATIVE Urine glucose detection by automated test okarj1403-49-85 19:31:00 Test Item Value Reference Range Comments Urine Glucose (UA) (test code = 75782-5) NEGATIVE NEGATIV E Urine ketone detection by automated test zdusj6945-92-33 19:31:00 Test Item Value Reference Range Comments Urine Ketones (test code = 29194-6) NEGATIVE NEGATIVE Urine urobilinogen measurement by automated test strip (mass/volume)2020-02-04 19:31:00 Test Item Value Reference Range Comments Urine Urobilinogen (test code = 82736-6) NEGATIVE NEGATIV E Urine bilirubin detection by automated test mitxt9062-21-20 19:31:00 Test Item Value Reference Range Comments Urine Bilirubin (test code = 54072-7) NEGATIVE NEGATIVE Urine erythrocytes detection by automated chxnux8654-21-49 19:31:00 Test Item Value Reference Range Comments Urine Blood (test code = 38585-4) 2+ NEGATIVE Urine ascorbic acid kumepnsbi8544-96-93 19:31:00 Test Item Value Reference Range Comments Urine Ascorbic Acid Level (test code = 1904-2) NEGATIVE Urine squamous epithelial cells detection by automated drobjd3732-08-17 19:31:00 Test Item Value Reference Range Comments Urine Squamous Epithelial Cells (test code = 01085-8) 1-5 0-5 RBC count ur wwcj5090-37-03 19:31:00 Test Item Value Reference Range Comments Urine RBC (test code = 798-9) 6-10 0-2 Automated leukocytes count in urine sediment (number/area)2020-02-04 19:31:00 Test Item Value Reference Range Comments Urine WBC (test code = 69386-0) 0-5 0-5 Urine bacteria detection by automated apyjhx5485-37-89 19:31:00 Test Item Value Reference Range Comments Urine Bacteria (test code = 22405-4) 1+ <1 Automated hyaline casts count in urine sediment by microscopy low powerfield (number/area)2020-02-04 19:31:00 Test Item Value Reference Range Comments Urine Hyaline Casts (test code = 5796-8) 3-10 0-2 Urine mucus detection by automated kcuxsb2440-38-69 19:31:00 Test Item Value Reference Range Comments Urine Mucus (test code = 57790-4) SMALL CAT [id number] 18:10:[address] [id number] Patient: SAJAN BANDA : 1955 Sex: M Address: [address] [place] [address] [facility] #: [id number] Unit #: [id number] [facility] SEQ #: [id number] Location: ED Room #: Ordering: SHAUNNA AMADO MD Diagnosis: FALL ------ CT HEAD, WITHOUT CONTRAST Indication: Trauma. Status post fall. Comparison: None. Technique: Routine axial CT images of the head were obtained from the skull base to the vertex without contrast. Imaging was repeated due to motion artifact. Findings: There is mild motion artifact. There are multiple small focal hypodensities at the right cerebellum and right internal capsule genu. There is patchy hypodensity in the periventricular white matter. There is mild/moderate prominence of the cortical sulci, cerebellar folia,and lateral ventricles, without hydrocephalus. There is no other evidence of intracranial hemorrhage, infarct, mass, or extra-axial fluid collection. The visualizedportions of the paranasal sinusesare grossly normal. IMPRESSION: 1. 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 Otherwise, no acute intracranial abnormality. 2. Moderate leukoaraiosis. 3. Mild/moderate atrophy. Final report electronically signed by: Livan Blackwell MD Signed by: ANA BLACKWELL MD 02/04/20 1806 cc: SHAUNNA AMADO MD, JEFFREY RZPESSKFAJI5281-16-37 17:36:[address] [id number] [phone] [id number] Patient: SAJAN BANDA : 1955 Sex: M Address: [address] [place] [address] [place] [address] Unit #: [id number] REQ SEQ #: [id number] Location: ED Room #: Ordering: SHAUNNA AMADO MD Diagnosis: FALL ------ CHEST PORTABLE - 1 VIEW Clinical Information: FALL Sthompson CP AFTER FALL, CONGESTED COUGH Comparison: 05/08/2018 Limitations: Portable technique, radiograph is rotated to the left. Findings: Overlying ECG leads. Heart size and pulmonary vasculature within normal limits. Pulmonary eagle within normal limits. Mild hyperinflation. No pulmonary consolidation, pneumothorax or pleural effusions. Atheroscleroticaorta. No acute osseous abnormality. Minimal apex rightward curvature of the thoracic spine. IMPRESSION: 1. No evidence of acute cardiopulmonary disease. 2. Mild hyperinflation compatible with emphysema/COPD. Final report electronically signed by: Davina Louis DO Signed by: CLIFFORD LOUIS DO 02/04/20 5745 cc: SHAUNNA AMADO MD,CLIFFORD Sales DOAlcohol (ethanol) assay 2020-02-04 16:51:00 Test Item Value Reference Range Comments Ethyl Alcohol Level (test < 10 0-10 Elevat ed Lactic Acid concentration code = ARJ3421) and Lactate Dehy drogenase (LD) activity may fal sey elevate enzymatically de termined Ethanol levels. Vitamin [id number] 16:51:00 Test Item Value Reference Range Comments Vitamin B12 Level (test code = BGU4950) 305 213-816 Thyroid Stimulating Jadgdqn2953-40-53 16:51:00 Test Item Value Reference Range Comments Thyroid Stimulating Hormone (TSH) (test code = 1.9705 0 .3500-4.9400 05472082) Free I14928-17-27 16:51:00 Test Item Value Reference Range Comments Free Thyroxine (test code = 6676505) 1.01 0.70-1.48 Prothrombin time (PT) in platelet poor plasma by coagulation erjuy0524-78-23 16:51:00 Test Item Value Reference Range Comments Prothrombin Time (test code = 5902-2) 13.7 10.8-14.2 INR in Platelet poor plasma by Coagulation qnult3903-73-33 16:51:00 Test Item Value Reference Range Comments Prothromb Time International 0.94 INR Therapeutic Range:2.0-3.0 Ratio (test code = 6301-6) Oral Anticoagulant Therapy2.5-3.5 P rosthetic Heart Valves, Recurren t Systemic Embolism NUCLEAR UDPMTGYF8855-23-27 17:27:[address] [id number] Patient: SAJAN BANDA : 1955 Sex: M Address: [address] [place] [address] [place] [address] Unit #: [id number] [facility] SEQ #: [id number] Location: [facility] Room #: [id number] Ordering: CLIFFORD KANG MD Diagnosis: CHEST PAIN [id number] NM/CARDIO4: 08/09/2018 DATE OF SERVICE: 08/09/2018 REFERRING PROVIDER: Dr. Kang. SUPERVISING PHYSICIAN: Dr. Bravo. INDICATION: Chest pain. TECHNIQUE AND FINDINGS: This 63-year-old male was stressed with 0.4 mg IV Lexiscan per protocol. He underwent a same-day single isotope SPECT study. It was a rest stress study. The sestamibi was administered intravenously. The stress dose of sestamibi was 31.2 mCi and rest dose of sestamibi was 12.8 mCi. The projectionimages were reviewed. The TID ratio is elevated at 1.30. Visually, there does not appear to be true transient stress induced dilatation of left ventricle. The perfusion images are normal. The polar map is normal. The Gated SPECT images reveal normal wall motion and normal thickening. Thepost-stress end diastolic volume is 46 mL. The calculated ejection fraction was 46 mL. Visually,the ejection fraction appears better than that. IMPRESSION: 1. Negative perfusion images for cardiac ischemia or infarct. 2. Low normal ejection fraction. Signed by: HAYLEY BRAVO MD 08/09/18 6115 cc: HAYLEY BRAVO MD, WILLIAM T MDCholesterol Fvkhm7443-57-43 05:01:00 Test Item Value Reference Range Comments Cholesterol (test code = PRN6321) 188 0-200 Triglycerides Ncmmn7491-24-81 05:01:00 Test Item Value Reference Range Comments Triglyceride (test code = ZYU9888) 127.0 0.0-150.0 HDL Rovbmziqtuq7512-76-89 05:01:00 Test Item Value Reference Range Comments HDL (test code = 85843330) 35 60-100 VLDL Jjtajfkmgux8793-48-31 05:01:00 Test Item Value Reference Range Comments Calculated very low density lipoprotein (VLDL) 25 5 -40 cholesterol determination (test code = 476290411) LDL Rjwcarahobq7515-00-37 05:01:00 Test Item Value Reference Range Comments LDL calc ser/plas (test code = 819246941) 128 0.0-12 9.0 Hemoglobin A5y3820-27-13 05:01:00 Test Item Value Reference Range Comments Hgb A1c (test code = 75428-5) 5.3 0.0-6.4 Hb A1c Value (%) Glycemic Goal <8 Less stringent < 7 General (non- ad ults) <6.5 More stringent Mean Blood Bymowtl3595-68-95 05:01:00 Test Item Value Reference Range Comments Glucose mean estimated using HbA1c (test code = 111.4 936839925) Bhjnrmbh3181-51-58 00:15:00 Test Item Value Reference Range Comments Troponin (test code = 853803683) 0.016 0.030-0.118 ZRIQHULDE6024-49-19 06:23:[address] [address] [id number] Patient: SAJAN BANDA : 1955 Sex: M Address: [address] [place] [address] [place] [address] Unit #: [id number] REQ SEQ #: [id number] Location: ED Room #: Ordering: FREEMAN MARKS DO Diagnosis: SOB/RIGHT ARM PAIN - History: Right arm pain, chestpain, dyspnea one day Chest single view IMPRESSION: The heart is normal in size. Negative for CHF or pneumonia. There is thickening of the right paratracheal area. Would recommend follow-up 2 view exam or chest CT for further evaluation. Final report electronically signed by: Segundo Eddy MD Signed by: SEGUNDO EDDY MD 08/08/18 0619 cc: FREEMAN MARKS DOUGLAS W MDBedside Troponin U6849-26-91 05:57:00 Test Item Value Reference Range Comments Bedside Troponin I (test code = Bedside Troponin I) 0.02 0.03-0.118 White Blood Ocghh0507-92-16 05:56:00 Test Item Value Reference Range Comments Blood leukocytes automated count (number/volume) (test 12.0 3.6-11.1 code = 6690-2) Red Blood Yjlrm7918-92-44 05:56:00 Test Item Value Reference Range Comments Blood erythrocytes automated count (number/volume) 5.14 4.27-5.49 (test code = 789-8) Rwgaqsdgky0959-32-90 05:56:00 Test Item Value Reference Range Comments Blood hemoglobin measurement (mass/volume) (test code 16.0 12.9-16.1 = 718-7) Axqwilvxbd6976-46-46 05:56:00 Test Item Value Reference Range Comments Automated blood hematocrit (volume fraction) (test 47.3 37.7-46.5 code = 4544-3) Mean Corpuscular Ihvelm3088-38-30 05:56:00 Test Item Value Reference Range Comments Automated erythrocyte mean corpuscular volume (test 92.0 79.3-94.8 code = 787-2) Mean Corpuscular Qzvrqvkadm9669-84-03 05:56:00 Test Item Value Reference Range Comments Automated erythrocyte mean corpuscular hemoglobin 31.0 26.8-33.2 (mass per erythrocyte) (test code = 785-6) Mean Corpuscular Hemoglobin Lkoxssk5809-39-51 05:56:00 Test Item Value Reference Range Comments Automated erythrocyte mean corpuscular hemoglobin 33.7 33.5-35.5 concentration measurement (mass/volume) (test code = 786-4) Red Cell Distribution Onrzx5103-47-69 05:56:00 Test Item Value Reference Range Comments Automated erythrocyte distribution width ratio (test 15.1 12.0-15.1 code = 788-0) Platelet Ghedy3030-83-11 05:56:00 Test Item Value Reference Range Comments Automated blood platelet count (count/volume) (test 320 165-353 code = 777-3) Mean Platelet Igcerq8271-86-31 05:56:00 Test Item Value Reference Range Comments Automated blood platelet mean volume measurement (test 7.1 7.5-10.6 code = 87800-7) Neutrophils (%) (Auto)2018-08-08 05:56:00 Test Item Value Reference Range Comments Automated blood neutrophil count as percentage of 75.0 43.2-71.5 total leukocytes (test code = 770-8) Lymphocytes (%) (Auto)2018-08-08 05:56:00 Test Item Value Reference Range Comments Automated blood lymphocyte count as percentage of 11.5 16.8-43.4 total leukocytes (test code = 736-9) Monocytes (%) (Auto)2018-08-08 05:56:00 Test Item Value Reference Range Comments Automated blood monocyte count as percentage of total 8.1 4.6-12.4 leukocytes (test code = 5905-5) Eosinophils (%) (Auto)2018-08-08 05:56:00 Test Item Value Reference Range Comments Automated blood eosinophil count as percentage of 4.3 0.7-7.8 total leukocytes (test code = 713-8) Basophils (%) (Auto)2018-08-08 05:56:00 Test Item Value Reference Range Comments Automated blood basophil count as percentage of total 1.1 0.2-1.2 leukocytes (test code = 706-2) Neutrophils # (Auto)2018-08-08 05:56:00 Test Item Value Reference Range Comments Blood neutrophils automated count (number/volume) 9.0 1.9-7.2 (test code = 751-8) Lymphocytes # (Auto)2018-08-08 05:56:00 Test Item Value Reference Range Comments Automated blood lymphocyte count (number/volume) (test 1.4 1.1-2.7 code = 731-0) Monocytes # (Auto)2018-08-08 05:56:00 Test Item Value Reference Range Comments Blood monocytes automated count (number/volume) (test 1.0 0.3-0.8 code = 742-7) Eosinophils # (Auto)2018-08-08 05:56:00 Test Item Value Reference Range Comments Automated blood eosinophil count (test code = 711-2) 0.5 0.0-0.5 Basophils # (Auto)2018-08-08 05:56:00 Test Item Value Reference Range Comments Automated blood basophil count (count/volume) (test 0.1 0.0-0.1 code = 704-7) Sodium Fmpdc3874-69-04 05:56:00 Test Item Value Reference Range Comments Sodium blood (test code = 971593992) 140 137-144 Potassium Pizey0756-72-06 05:56:00 Test Item Value Reference Range Comments Potassium blood (test code = 208017588) 3.8 3.1-5.1 Chloride Mwmmx9885-67-67 05:56:00 Test Item Value Reference Range Comments Chloride blood (test code = 366741524) 105 101-110 Carbon Dioxide Jrcfk8646-47-33 05:56:00 Test Item Value Reference Range Comments Carbon dioxide blood (test code = 56447525) 25 23-3 1 Glucose Ubqby9404-09-18 05:56:00 Test Item Value Reference Range Comments Glucose blood (test code = 15183853) 104 70-105 Blood Urea Jdkhkvtg1586-20-56 05:56:00 Test Item Value Reference Range Comments BUN (test code = 817109054) 18.0 8.4-25.7 Pziegylnse0931-32-05 05:56:00 Test Item Value Reference Range Comments Creatinine blood (test code = 863074572) 1.51 0.72-1. 25 Anion Yeq8117-30-92 05:56:00 Test Item Value Reference Range Comments Anion gap measurement (test code = 95436050) 14 7-1 6 Calcium Szzic2148-48-94 05:56:00 Test Item Value Reference Range Comments Calcium (test code = 43813749) 9.8 8.4-10.2 Total Pryvpksby4264-02-19 05:56:00 Test Item Value Reference Range Comments Total bilirubin (test code = JMU4481) 0.6 0.1-1.2 Total Ptsbnts9250-91-03 05:56:00 Test Item Value Reference Range Comments Total protein blood (test code = 2885-2) 7.3 6.0-8.3 Eftoqyq9105-13-73 05:56:00 Test Item Value Reference Range Comments Albumin (test code = MHQ8087) 4.2 3.2-5.2 Vkfxuffv4021-73-81 05:56:00 Test Item Value Reference Range Comments Plasma globulin measurement (mass/volume) (test code = 3.1 2.6-4.6 37987-1) Albumin/Globulin Trqoc0525-93-07 05:56:00 Test Item Value Reference Range Comments Albumin to globulin ratio (test code = 055923) 1.4 1 .1-2.5 Aspartate Amino Transf (AST/SGOT)2018-08-08 05:56:00 Test Item Value Reference Range Comments AST (SGOT) ser/plas (test code = 57057326) 15 5-34 Alkaline Ipxasvobdyp7163-81-19 05:56:00 Test Item Value Reference Range Comments Alkaline phosphatase (test code = 78128858) 136 40-1 50 Alanine Aminotransferase (ALT/SGPT)2018-08-08 05:56:00 Test Item Value Reference Range Comments ALT (SGPT) ser/plas (test code = 1742-6) 15 0-55 CATH HWZ7907-62-51 08:55:[address] [address] [id number] ------ Patient: SAJAN BANDA : 1955 Sex: M Address: [address] [place] [address] [address] [place] [id number] [facility] #: [id number] Unit #: [id number] [facility] SEQ #: [id number] Location: [facility] Room #: 3-6116-P Ordering: ECTOR MOTLEY MD Diagnosis: PAD/PVD ------ 8008253.001 CATHLAB/HEARTCATHCARDIAC/HEART CATHETERIZATION: 02/27/2017 DATE OF SERVICE: 02/27/2017 PROCEDURE: Peripheral angiography. INDICATION: Critical limb ischemia. TECHNIQUE: The right femoral region was prepared in the usual sterile and drape manner, anesthetized with 1% lidocaine solution. Hemodynamic access was gained without difficulty. There is evidence of significant narrowings and calcification in the right common and external iliac vessels and this was successfully negotiated with a Glidewire. Abdominal aortography, selective iliac angiography and bilateral runoffs were performed. ANGIOGRAPHIC FINDINGS: The right renal artery has an ostial stenosis that appears to be significant. The left renal artery is not visualized and there is no evidenceof significant renal blush to the left side. The infrarenal abdominal aorta is mildly ectatic andaneurysmal. There is a high-grade stenosis in the ostium of the right common iliac and in the right common iliac is diffusely diseased throughout its course with a high grade external iliac stenosis on the right side. The right profunda femoris has a significant stenosis and the right SFA isoccluded at the bifurcation. Left inflow vessels demonstrated tortuous and diffusely diseased common and external iliac. Because of the acute angulation of the terminal aorta and right and left common iliacs, it was very difficult to get the catheter across and multiple guidewires were used ultimately. A 4-[place] catheter was advanced into the common iliac and left lower extremity runoff was performed using selective shots. The left profunda femoris is patent with a sten osis at the bifurcation that appears to be in the 30% range. The left SFA is flush occluded at that location. The profunda gives extensive collaterals. The distal SFA appears occluded. Left popliteal is occluded and the infrapopliteal vessels reconstitute via significant collateral network. The tibioperoneal trunk and anterior tibial arteries are all widely patent and there is 3-vessel runoff to the left foot. Right lower extremity runoff was then performed. The right external iliac is diffusely diseased with a moderate stenosis prior to the joint space and the commonfemoral artery. The right profunda femoris has a high grade stenosis in it. The right SFA is occl uded at the bifurcation. The right SFA reconstitutes just proximal the Jeffrey's canal. The rightpopliteal is patent and there is 3-vessel runoff to the right foot. IMPRESSION: 1. Right renal artery stenosis. 2. Infrarenal abdominal aorta. 3. Diffuse inflow to both the right and left legs. 4. Complete occlusion of the right superficial femoral artery at the common femoral with 3-vessel runoff below Jeffrey's canal. 5. Complete occlusion of the left superficial femoral artery with reconstitution via collaterals at the popliteal. 6. Three-vessel runoff to the left foot. DISCUSSION: In order to avoid aortobifemoral and bifemoral popliteal surgeries, endovascular therapy to the right and left inflow vessels can be performed; however, in order to get complete revascularization, left femoropopliteal surgery will be required. Signed by: ECTOR MOTLEY MD 02/28/17 0855 cc: ECTOR BOWLES MD, JOHN A III MDSodium Nyuip4641-50-12 06:45:00 Test Item Value Reference Range Comments Serum sodium measurement (test code = 2951-2) 138 13 7-145 Potassium Imszy4040-66-72 06:45:00 Test Item Value Reference Range Comments Serum potassium measurement (test code = 2823-3) 4.2 3.5-5.1 Chloride Whhor7619-98-13 06:45:00 Test Item Value Reference Range Comments Chloride ser/plas (test code = 2075-0) 106 98-107 Carbon Dioxide Fsewp2577-49-99 06:45:00 Test Item Value Reference Range Comments Carbon dioxide measurement (test code = 31478381) 22 22-30 Glucose Gppen1433-95-51 06:45:00 Test Item Value Reference Range Comments Serum or plasma glucose measurement (mass/volume) 81 74-106 (test code = 2345-7) Blood Urea Xfmxdwqx9292-21-51 06:45:00 Test Item Value Reference Range Comments Serum or plasma urea nitrogen measurement 24 9-20 (mass/volume) (test code = 3094-0) Tdbjhvitiu5351-42-82 06:45:00 Test Item Value Reference Range Comments Serum or plasma creatinine measurement (moles/volume) 1.12 0.66-1.25 (test code = 00395-9) Anion Slz7635-10-60 06:45:00 Test Item Value Reference Range Comments Blood anion gap (test code = 19729-7) 14 7-16 Calcium Urzlm3046-84-39 06:45:00 Test Item Value Reference Range Comments Serum or plasma calcium measurement (mass/volume) 9.5 8.4-10.2 (test code = 43884-5) White Blood Ulmkc8509-55-63 12:00:00 Test Item Value Reference Range Comments Blood leukocytes automated count (number/volume) (test 10.8 3.6-11.1 code = 6690-2) Red Blood Wwsot3160-53-13 12:00:00 Test Item Value Reference Range Comments Blood erythrocytes automated count (number/volume) 4.63 4.27-5.49 (test code = 789-8) Hmndzxghqx9087-30-12 12:00:00 Test Item Value Reference Range Comments Blood hemoglobin measurement (mass/volume) (test code 15.0 12.9-16.1 = 718-7) Fblxexhajn0011-57-82 12:00:00 Test Item Value Reference Range Comments Automated blood hematocrit (volume fraction) (test 44.3 37.7-46.5 code = 4544-3) Mean Corpuscular Bphvdk9610-66-83 12:00:00 Test Item Value Reference Range Comments Automated erythrocyte mean corpuscular volume (test 95.6 79.3-94.8 code = 787-2) Mean Corpuscular Rtbccnexvk0712-81-53 12:00:00 Test Item Value Reference Range Comments Automated erythrocyte mean corpuscular hemoglobin 32.5 26.8-33.2 (mass per erythrocyte) (test code = 785-6) Mean Corpuscular Hemoglobin Uzkbrgv2609-86-28 12:00:00 Test Item Value Reference Range Comments Automated erythrocyte mean corpuscular hemoglobin 34.0 33.5-35.5 concentration measurement (mass/volume) (test code = 786-4) Red Cell Distribution Dvmxy2344-93-39 12:00:00 Test Item Value Reference Range Comments Automated erythrocyte distribution width ratio (test 14.7 12.0-15.1 code = 788-0) Platelet Eqihv4926-71-71 12:00:00 Test Item Value Reference Range Comments Automated blood platelet count (count/volume) (test 785 341-735 code = 777-3) Mean Platelet Wjioka6823-83-70 12:00:00 Test Item Value Reference Range Comments Automated blood platelet mean volume measurement (test 7.0 7.5-10.6 code = 26046-7) Magnesium Isprs1588-81-26 12:00:00 Test Item Value Reference Range Comments Magnesium measurement (test code = 84236-5) 2.0 1.6- 2.3 PNGFQEIHM9459-12-89 13:56:[address] [address] [id number] ------ Patient: SAJAN BANDA : 1955 Sex: M Address: [address] [place] [address] [address] [place] [id number] [id number] Unit #: [id number] REQ SEQ #: [id number] Location: WOUND CARE Room #: Ordering: ECTOR BOWLES MD Diagnosis: WOUND ON ANKLE --------- ANKLE LEFT 3 OR MORE VIEWS History: WOUND ON ANKLE WOUND ON ANKLE 4 views were obtained. The mineralization is normal. There is no fracture or malalignment. There is no dislocation. Soft tissues defect identified over the lateral malleolus. No radiopaque foreign bodies. No associated bone abnormality. No focal destructive changes to suggest osteomyelitis. Impression: No acute osseous abnormality. No definitive radiographic evidence of osteomyelitis. Final report electronically signed by: Aramis Quiñones MD Signed by: ARAMIS QUIÑONES II, MD 02/12/17 7923 cc: ECTOR BOWLES MD, II,ARAMIS Wilkes MDWound Bqqiwdi6194-04-99 10:10:00 Test Item Value Reference Range Comments Bacteria identification in wound Organism: ANAEROBIC POS by culture (test code = 6462-6) COCCO-BACILLI POC Hxjvcak1582-05-23 09:35:00 Test Item Value Reference Range Comments POC Glucose (test code = POC Glucose) 76 74-106 Encounters Start End Encounter Admission Attending Care Care Encounter Date/Time Date/Time Type Type Clinicians Facility Department ID 2020-02-05 2020-03-01 Inpatient ED [facility] [id number] 12:05:00 14:16:00 MARLEN 58 2018-08-08 2018-08-09 Inpatient ED [facility] [id number] 07:27:00 15:45:00 CLIFFORD 50 2017-02-27 2017-02-27 Registered JOE MOTLEY, [facility] [id number] 10:23:00 10:23:00 Clinic ECTOR 43 2017-02-22 2017-02-22 Registered JEO MOTLEY, [id number] 11:45:00 11:45:00 Clinic ECTOR [id number] a-[id number] b85 2017-02-12 2017-02-12 Registered ECTOR SCALES [id number] [id number] 11:52:00 11:52:00 Recurring edc5-44d4 c5-65v6-7yl 34 -3uc9-g31 6-a09jgs4g8 [id number] 041 2017-01-05 2017-01-05 Emergency ED SAUL, [facility] [id number] 00:10:00 01:46:00 CHARLES 23 Immunizations Ordered Immunization Filled Immunization Date Status Commen ts Refusal Reason Name Name pneumococcal 2017-02-28 Completed polysaccharide PPV23 00:00:00 Payers Payer Name Policy Type Policy Number Effective Date Expiration D ate Medicare A&B [id number] Medicaid [place] Access [id number] Social History Social Habit Start Date Stop Date Comments No 2020-02-04 20:06:00 Y - 1 PPD 2017-02-27 16:08:00 Smoking Status Start Date Stop Date Current every day smoker 2020-03-01 07:55:00 Social History Observation Description Sex Male Vital Signs Vital Name Observation Time Observation Value Comments WEIGHT 2020-03-01 06:47:00 63.3000 kg HEIGHT 2020-03-01 06:47:00 165.487704 cm WEIGHT 2020-02-24 06:00:00 61.5000 kg HEIGHT 2020-02-24 06:00:00 165.276313 cm WEIGHT 2020-02-17 05:37:00 61.8000 kg HEIGHT 2020-02-17 05:37:00 165.762825 cm WEIGHT 2020-02-13 04:33:00 60.9000 kg HEIGHT 2020-02-13 04:33:00 165.246418 cm WEIGHT 2020-02-10 04:48:00 60.2000 kg HEIGHT 2020-02-10 04:48:00 165.746568 cm WEIGHT 2020-02-09 05:43:00 59.9000 kg HEIGHT 2020-02-09 05:43:00 165.080874 cm WEIGHT 2020-02-08 04:20:00 60.3000 kg HEIGHT 2020-02-08 04:20:00 165.474410 cm WEIGHT 2020-02-07 04:28:00 60.2000 kg HEIGHT 2020-02-07 04:28:00 165.307276 cm WEIGHT 2020-02-05 05:04:00 58.6000 kg HEIGHT 2020-02-05 05:04:00 165.130688 cm WEIGHT 2020-02-04 15:40:00 58.8000 kg HEIGHT 2020-02-04 15:40:00 165.060284 cm WEIGHT 2018-08-08 07:27:00 63.7000 kg HEIGHT 2018-08-08 07:27:00 165.506172 cm WEIGHT 2018-08-08 05:25:00 63.6400 kg HEIGHT 2018-08-08 05:25:00 165.287756 cm WEIGHT 2017-02-27 10:23:00 68.000 kg HEIGHT 2017-02-27 10:23:00 165.796486 cm WEIGHT 2017-01-05 00:10:00 70.400 kg HEIGHT 2017-01-05 00:10:00 165.226039 cm Weight 2020-03-01 06:47:00 139.55 [lb_av] BMI (Body Mass Index) 2020-03-01 06:47:00 23.0 kg/m2 Hospital Discharge Instructions Additional Instructions Discharge Instructions Nursing Discharge Assessment Cognitive Status: Awake,Alert, Appropriate, Follows Commands Functional Status: Ambulates Independently, Eats Independently,Bathes Independently, Dresses Independently, Toilets Independently, Medicates Self Indepen., Appropriate for Age Is your patient leaving the hospital with any of these: None Are Patient Instructions For Above Device Added on DC Tab: No Plan of Care #1 Problem:: RENAL INSUFFICIENCY Plan:: REVIEW ALL EDUCATION MATERIALS PROVIDED Goal:: REMAINS FREE FROM COMPLICATIONS Level Of Pain At Discharge: 0 Pain Scale Does The Pt Understand How To Manage Their Pain At Home?: Yes Pain Management Plan of Care: TakeMedOnlyAsPrescribed, IncreaseActivityAsTolerat , NotifyMDForIncreasingPain Does Patient Have Valuables In Possession: Yes Medication or Valuables Kept With Patient: CLOTHES, GLASSES, WALLET ValuablesPre v Returned-Visitor: NONE Meds Returned from Pharmacy: LISINOPRIL, LIPITOR, TRIAMCINOLONE ACETONIDE OINTMENT, AMLODIPINE (EMPTY BOTTLE - WAS EMPTY ON ADMIT), SILDENAFIL (EMPTY BOTTLE - WAS EMPTY ON ADMIT) Pt Specific Meds Returned: FLONASE, EUCERIN CREAM, BACITRACIN CREAM RT Pt Specific Meds Returned: N/A Valuables Returned by Security: NONE Valuables Returned Comment: CIGARETTES AND ESCROW AGENT ALSO RETURNED Physician Documentation Discharge Diagnoses: (1) Chest pain Plan: 02/04/2020-patient fell off hisdeck recently and landed on the left side of his chest. The patient has pain with deep breaths and palpation of the left chest. No changes on EKG noted. The patient will be placed on telemetry. Have ordered pain medication for patient. 02/05/2020-chest pain is musculoskeletal. Treating him symptomatically. No evidence of rib fractures. 02/06/2020-will try lidocaine patch on the chest wall and see if this helps his pain. 02/07/2020?lidocaine patch appears to be improving chest wall pain, will continue 02/08/2020-much better lidocaine patch. 02/10/2020 no complaints of chest pains on examination today. 02/14/2020-no complaints of chest pain today. 02/17/2020-states his chest pain from his rib contusion is resolved. 02/18/2020- chest pain resolved 02/25/20- denies any chest pains this morning. 02/28/2020 doing well no complaints of chest pains for the last couple of days. 02/29/20-pt denies seeing any chest pains(2) Hyperkalemia Plan: Most likely related to dehydration and kidney disease. Patient does not appear to be on any medications that would cause hyperkalemia. Patient received 2 L normal saline in the ED. Will place patient on IV maintenance fluids and repeat BMP later this evening. Continuous telemetry. 02/05/2020-potassium is 5.3 today. Continuing IV hydration. 02/05/2020 this is slowly improving. Potassium today 5.1. 02/07/2020?continues to improve, status post fluid hydration, potassium 5.1 02/08/2020?potassium 5, will continue to monitor off fluids 02/09/2020-potassium 4.9, continue to monitor. 02/10/2020-serum potassium today is 4.8. Hyperkalemia is resolved. 02/13/2020-serum potassium today is 4.1 within normal limits. 02/14/2020-latest serum potassium is 4.1 within normal limits. 02/15/2020-serum potassium is 4.6 today within normal limits. 02/17/2020-serum potassium 4.7 today. 02/18/2020-recheck potassium in the morning. 02/19/2020-potassium 4.7. 02/22/2020-potassium 5.1 02/23/2020-potassium 5.5. Continue to monitor daily. 02/24/2020-latest serum potassium is 4.7. Within normal range.. 02/29/2020-hyperkalemia is resolved. (3) Acute on chronic kidney failure Assessment: 02/17/2020-creatinine today 2.33. Stable 02/19/2020-creatinine 2.5 4 repeat. 02/22/2020-BUN/creatinine 60/2.68. Patient's p.o. intake has droppe d off. Plan: Patient's creatinine elevated from baseline. Normal saline in the ED. Will place patient on IV fluids and repeat labs in a.m. 02/05/2020-creatinine is slowly coming down. He is on normal saline 75 mL/h. He will likely need this another 24 to 48 hours. His acute kidney injury is likely the basis of acute tubular necrosis. 02/06/2020-creatinine continues to improve. Is now 2.74. His baselineappears to be around 1.5. We will continue another 24 to 48 hours of gentle hydration. 02/07/2020?status post gentle fluid hydration, creatinine continues to improve to 2.01 02/08/2020?IV fluids discontinued, creatinine improved to 1.88, continue to encourage p.o. fluid hydration, baseline appears to be1.5, continue holding lisinopril 40 mg daily 02/09/2020-patient's probably at his new baseline creatinine clearance 30-35. Continuing to hold lisinopril. 02/10/2020-lisinopril is on hold serum creatinineis 2.29 today compared to 2.0 yesterday. Baseline creatinine is around 1.5. 02/11/20-serum creatininetoday is 2.4 stable. Plan is to continue to monitor serum creatinine on regular basis. Continue to hold lisinopril at this time. 02/13/2020-serum creatinine today is 2.4 stable. 02/15/2020-serum creatininetoday 2.4 stable. 02/23/2020-patient's creatinine is 5.63. his creatinine clearance is between 25 and30 02/24/2020-serum creatinine today is 2.14 at baseline. 02/29/2020-serum creatinine is stable. Patient has a stage III kidney disease. (4) COPD (chronic obstructive pulmonary disease) Plan: Does not appear that patient is taking anything at home for his COPD. Maintain oxygen saturations of 88% or greater. Encourage patient to quit smoking. Have ordered albuterol inhaler, Singulair, Mucinex, and Flonase. 02/05/2020-patient states he has COPD and he continues to smoke. Will order nebulizer treatments as needed. He has no wheezing on exam today. 02/06/2020-as above. He does have some mild wheezing today. 02/09/2020-no evidence of any wheezing or hypoxemia. 02/12/2020-pulse ox today is 97% on room air. Asy mptomatic. 02/15/2020-pulse ox today is 97% on room air comfortable in the bed communicating well. On examination chest bilateral entry was decreased no wheezing no crepitations. 02/16/2020-pulse ox today's 100% on room air. COPD stable. 02/17/2020-pulse ox 9200% on room air. 02/18/2020-pulse ox 94% on room air. Well compensated. 02/25/2020-pulse ox today's 100% on room air. Not on oxygen supplementations. COPD stable. 02/26/2020-pulse ox today's 100% room air. On examination chest bilateral entry was decreased no wheezing no crepitations present. 02/28/2020-pulse ox today is 98% room air. COVID test came back negative. (5) History of TIA (transient ischemic attack) Plan: CT of head shows right-sided infarcts with chronicity undetermined. No acute intercranial processes noted. No neurological deficits notedon examination. Will place patient on 81 mg of aspirin. 02/10/2020-on examination alert awake communicating well. No focal neurological deficits. 02/15/2020-patient admitted with TIA work-up is negative and alert awake communicating well. 02/16/2020 alert awake communicating well. No focal logical deficitson examination. 02/17/2020-alert awake and cooperative. Neuro exam is nonfocal. (6) Continuous tobaccoabuse Plan: Nicotine patch ordered. Encourage patient to stop smoking. (7) DVT prophylaxis Plan: Given patient's acute on chronic renal failure the patient will be placed on subcu heparin. (8) Eczematous dermatitis Assessment: 02/20/2020 patient has been having some pathological scratching of his right arm requiring wrapping and dressing. His left arm is also quite dry. 02/21/2020-patient still has quitea bit of itching. Will start prednisone 20 mg daily for 5 days. Continue moisturizer. 02/22/2020-improving both clinically and symptomatically on prednisone. We will complete a 5-day course and continuemoisturizer 02/23/2020-continues to improve. Will finish his 5-day course of prednisone and moisturizer continues. 02/29/2020- patient continues to scratch the right arm we give him Benadryl as needed addison protective dressing in place plan is to start him on Atarax today. Plan: Moisturizer, steroid lotion. (9) Cognitive impairment Assessment: 02/23/2020- patient has had a capacity evaluation and has beenfound to lack capacity to manage his own financial and personal affairs. He has significant cognitive impairment. A hearing for assignment of a guardian will be held on Sunday, February 25, 2020. Patientwill require supervised living situation. Plan: 02/23/2020- pursuing assisted living options for the patient. 02/24/2020-patient is going to have a hearing tomorrow if improved [facility] To check for COVID as per the telephonic case manager. 02/25/2020-hearing is scheduledfor guardianship today and patient may be able to go to [facility] tomorrow. 02/26/2020 waiting for the COVID test results once these are negative he goes to [facility] in [place]. 02/27/2020-patient has cognitive impairment and he had a guardianship meeting 2 days ago. Once the court test comeback negative [facility] and recheck lines. 02/28/2020- patient is going to [facility] on Sunday. 02/29/2020-patient is going to [facility] tomorrow. COVID test is negative. Condition: Fair Height (Feet): 5 Height (Inches): 5.00 Weight (Kilograms): 63.3000 Diet: Heart Healthy Wound Care Instructions: N/A Dressing Type: N/A General: As Tolerated
== END ==
LOC: OD 09:29
PROVIDERS: ATTEND Family Medicine
DX: E78.5 Hyperlipidemia, unspecified (principal); I12.9 Hypertensive chronic kidney disease with stage 1 through stage 4 chronic kidney disease, or unspecified chronic kidney disease; N18.9 Chronic kidney disease, unspecified; E55.9 Vitamin D deficiency, unspecified; A53.9 Syphilis, unspecified; N39.0 Urinary tract infection, site not specified; E03.9 Hypothyroidism, unspecified; E53.8 Deficiency of other specified B group vitamins
CPT/HCPCS: 36415; 80053; 80061; 81001; 82306; 82607; 82746; 84443; 85027; 86592; 87086